=== PATIENT | female | born 1985 | race Two or more races ===

== ENCOUNTER 2020-07-18 14:43 | Outpatient (REF) | payer OTHER, SELFPAY | END 2020-07-18 14:44 | disposition home or self-care (01) | LOC: HO.LAB 14:43 | PROVIDERS: Visit Provider Internal Medicine | DX: Z20.822 Contact with and (suspected) exposure to COVID-19 (principal) | CPT/HCPCS: 36415; C9803; U0003 ==

== ENCOUNTER 2020-07-31 16:59 | Outpatient (REF) | payer OTHER, SELFPAY | END 2020-07-31 17:00 | disposition home or self-care (01) | LOC: HO.LAB 16:59 | PROVIDERS: Visit Provider Internal Medicine | DX: Z20.822 Contact with and (suspected) exposure to COVID-19 (principal) | CPT/HCPCS: 36415; C9803; U0003 ==

== ENCOUNTER 2020-08-19 09:43 | Emergency (ER) | payer OTHER, SELFPAY ==
--- NOTE | ~2020-08-19 | XR_ITS ---
EXAMINATION: XR KNEE, LEFT CLINICAL INFORMATION: Injury, pain COMPARISON: Report radiographs left knee 11/19/2015, films unavailable. TECHNIQUE: Four views of the left knee. 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 There is no fracture or dislocation or destructive process. No joint narrowing or erosive change or chondrocalcinosis. Lateral view suggests borderline thickening suprapatellar bursa which may represent trace effusion. Hoffa's fat pad appears normal. XR/XR knee LT 4V IMPRESSION: 1. Suspect trace suprapatellar effusion. No fracture or dislocation. 2. Congenital bipartite patella.
--- NOTE | 2020-08-19 09:55 | ED_ITS ---
HPI - Extremity Injury (Lower) General Chief Complaint: Extremity Injury, Lower Stated Complaint: leg pain Time Seen by Provider: 08/19/20 09:55 Source: patient Mode of arrival: ambulatory Limitations: no limitations History of Present Illness HPI Narrative: while dancing patient felt the knee go in MD complaint: knee injury Onset (ago): day(s) Injury: Left: knee Type of Injury: eversion Place: home Related Data Allergies Allergy/AdvReac Type Severity Reaction Status Date / Time amoxicillin [AMOXICILLIN] Allergy Mild RASH Verified 08/19/20 10:05 Review of Systems Constitutional: Constitutional: Reports no additional constitutional complaints Eyes: Eyes: Reports no additional eye complaints ENT: Denies dizziness Cardiovascular: Cardiovascular: Reports no additional cardiovascular complaints Respiratory: Respiratory: Reports as per HPI Gastrointestinal: Gastrointestinal: Reports no additional gastrointestinal complaints Genitourinary: Genitourinary: Reports no additional female genitourinary complaints Musculoskeletal: Musculoskeletal: Reports no additional musculoskeletal complaints Integumentary/Breasts: Skin/Breast: Denies rash Neurologic: Reports system reviewed and no additional complaints, except as documented, Denies dizziness and Denies Sensory deficit (Neuro) Psychiatric: Psychiatric: Denies anxiety REPLACED BY [facility] Past Medical History Medical History No known health problems Social History Social History Alcohol intake: current Alcohol intake frequency: holidays/special occasions only Smoking Status: Never smoker Smoked in Last 30 Days: No Use of substances other than those prescribed or required for medical reasons: Yes Substance Use Type: Marijuana Substance Use Frequency: Daily Any prior treatment program specific to substance use: No Advance Directives: Yes Advance Directives Information Provided: No Advance Directives on File: No Physical Exam Vital Signs: Vital Signs: Last Vital Signs Temp 97.2 F 08/19/20 12:54 Pulse 68 08/19/20 12:54 Resp 14 08/19/20 12:54 BP 124/71 08/19/20 12:54 Pulse Ox 98 08/19/20 12:54 Body Mass Index 32.5 Const: General: healthy appearing Nutritional Appearance: average body habitus Orientation/consciousness: oriented to person and patient oriented x3 Limitations: no limitations HENMT: Head: Yes normal to inspection Ears: external ears normal General nose exam: Normal external nose present Mouth: Normal oral and palatal mucosa present and oropharynx normal Throat: Yes posterior oropharynx normal Eyes: General: appearance normal, both eyes and all related structures Neck: Other: supple Neck: Yes normal visual inspection Chest: Chest palpation & inspection: normal inspection of the chest Resp: Auscultation: clear to auscultation bilaterally Cardio: Jugular venous distension: no JVD Rate: regular rate Rhythm: regular rhythm Heart sounds: S1 normal heart sound present and S2 normal heart sound present GI: Inspection: Yes normal to inspection Palpation (GI): Soft to palpation, nontender and No hepatosplenomegaly present Auscultation: normal bowel sounds : General: Yes no CVA tenderness Back/Spine/Pelvis: Back: no CVA tenderness Skin: General skin exam: no rashes or lesions noted Neuro: General: oriented to person and patient oriented x3 Cranial nerves: Yes CN's II-XII intact bilaterally Motor exam (neuro): 5/5 motor strength present throughout Sensory Exam: No Sensory deficit (Neuro) Extrem: Other: left knee, no effusion FROM, no laxity no anterior or posterior draw General: Yes normal to inspection Psych: Appearance: grossly normal MDM - Extremity Injury (Lower) MDM Narrative Medical decision making narrative: patient with cam knee on physical exam, likely strain Differential Diagnosis Differential diagnosis: Likely acute internal derangement of knee Imaging Data knee: Radiologist's impression: no fracture Discharge Plan Discharge Clinical Impression: Knee strain Patient Disposition: Home, Self-Care Instructions: Knee Pain (ED) Additional Instructions: ice for 20 minutes on and off, tylenol or motrin for pain Referrals: Physician,None [Primary Care Provider] - 2 days
[2020-08-19 10:03] VITALS: BP 134/79; PULSE 71; RESP 18; TEMP 37; O2SAT 99; BMI 32.5
[2020-08-19 12:54] VITALS: BP 124/71; PULSE 68; RESP 14; TEMP 36.2; O2SAT 98
== END 2020-08-19 14:10 | disposition home or self-care (01) ==
PROVIDERS: Emergency Provider Emergency Medicine
DX: S86.912A Strain of unspecified muscle(s) and tendon(s) at lower leg level, left leg, initial encounter (principal); X50.1XXA Overexertion from prolonged static or awkward postures, initial encounter; Y93.41 Activity, dancing; Y92.9 Unspecified place or not applicable; Y99.9 Unspecified external cause status
CPT/HCPCS: 73564; 99283; 99284

== ENCOUNTER 2020-09-15 11:13 | Outpatient (REF) | payer OTHER, SELFPAY | END 2020-09-15 11:14 | disposition home or self-care (01) | LOC: HO.LAB 11:13 | PROVIDERS: Visit Provider Internal Medicine | DX: Z20.822 Contact with and (suspected) exposure to COVID-19 (principal) | CPT/HCPCS: 36415; C9803; U0003; U0005 ==

== ENCOUNTER 2020-11-07 10:40 | Outpatient (REF) | payer OTHER, SELFPAY ==
[2020-11-07 11:11] LABS: MANUAL DIFF FLAG NO
[2020-11-07 11:53] LABS: Basophils Percent Auto 0.3 % (0-2); Eosinophils Absolute Auto 0.1 X10*3/uL (0.0-0.4); Eosinophils Percent Auto 1.1 % (0-4); Hematocrit 41.4 % (37-47); Hemoglobin 13.5 g/dl (12.0-16.0); Imm Gran Abs Auto 0.02 X10*3/uL (0.00-0.03); Imm Gran Pct Auto 0.3 % (0.0-0.4); Lymphocytes Absolute Auto 2.6 X10*3/uL (1.2-4.9); Lymphocytes Percent Auto 37.1 % (20-40); Mean Corpuscular HGB Conc 32.6 g/dl (31.0-35.0); Mean Corpuscular Hemoglobin 30.6 pg (27.0-33.0); Mean Corpuscular Volume 93.9 fL (80-98); Mean Platelet Volume 10.7 fL (9.4-12.3); Monocytes Absolute Auto 0.4 X10*3/uL (0.1-1.2); Monocytes Percent Auto 5.4 % (2-11); Neutrophils Absolute Auto 3.9 X10*3/uL (2.0-8.3); Neutrophils Percent Auto 55.8 % (45-73); Platelet Count 301 X10*3/uL (160-400); Red Blood Count 4.41 X10*6/uL (4.20-5.50); Red Cell Distribution Width 12.4 % (11.0-16.0); White Blood Count 7.1 X10*3/uL (4.8-10.8)
[2020-11-07 12:02] LABS: Iron 168 mcg/dL (30-160); Percent Iron Saturation 46 % (15-50); Total Iron Binding Capacity 367 mcg/dL (228-428); Unsaturated Iron Binding 199 ug/dL
== END 2020-11-07 10:41 | disposition home or self-care (01) ==
LOC: HO.LAB 10:40
PROVIDERS: PCP Internal Medicine; Visit Provider Internal Medicine
DX: D64.9 Anemia, unspecified (principal)
CPT/HCPCS: 36415; 83540; 85025

== ENCOUNTER 2020-11-10 11:27 | Outpatient (REF) | payer OTHER, SELFPAY ==
--- NOTE | 2020-11-10 11:32 | ECG_ITS ---
Test Reason : ? Blood Pressure : / mmHG Vent. Rate : 067 BPM Atrial Rate : 067 BPM P-R Int : 164 ms QRS Dur : 074 ms QT Int : 404 ms P-R-T Axes : 037 037 000 degrees QTc Int : 426 ms Normal sinus rhythm with sinus arrhythmia Normal ECG No previous ECGs available Referred By: Kelvin Howard Electronically Signed By:Ghassan Roper
[2020-11-10 12:50] LABS: INTERNATIONAL NORM RATIO 1.1 (0.9-1.1); Prothrombin Time 12.6 SEC (10.8-13.0)
[2020-11-10 13:22] LABS: Anion Gap 13 (12-20); Blood Urea Nitrogen 11 mg/dL (9-16); Calcium 9.7 mg/dL (8.4-10.2); Carbon Dioxide 24 mmol/L (22-29); Chloride 104 mmol/L (96-108); Estimated Glomerular Filt Rate > 60; Glucose Random 85 mg/dL (60-115); Potassium 4.1 mmol/L (3.3-5.1); Sodium 137 mmol/L (135-145)
== END 2020-11-10 11:28 | disposition home or self-care (01) ==
LOC: HO.LAB 11:27
PROVIDERS: PCP Physician Assistant; Visit Provider Physician Assistant
DX: Z01.818 Encounter for other preprocedural examination (principal)
CPT/HCPCS: 36415; 80048; 85610; 93005

== ENCOUNTER 2020-11-17 13:26 | Outpatient (REF) | payer OTHER, SELFPAY ==
[2020-11-17 14:11] LABS: COVID-19 Test Negative (Negative)
== END 2020-11-17 13:27 | disposition home or self-care (01) ==
LOC: HO.LAB 13:26
PROVIDERS: Visit Provider Internal Medicine
DX: Z20.822 Contact with and (suspected) exposure to COVID-19 (principal)
CPT/HCPCS: 36415; 87635; C9803

== ENCOUNTER 2021-01-22 12:48 | Outpatient (RCR) | payer OTHER, SELFPAY | END 2021-04-22 13:36 | disposition home or self-care (01) | LOC: HO.WCC 12:48 | PROVIDERS: Visit Provider Surgery | DX: Z09 Encounter for follow-up examination after completed treatment for conditions other than malignant neoplasm (principal) | CPT/HCPCS: 11042; 11045; 87071; 87077; 87186; 87205; 99212 ==

== ENCOUNTER 2021-02-10 17:49 | Emergency (ER) | payer OTHER, SELFPAY ==
[2021-02-10 18:25] VITALS: BP 125/83; PULSE 72; RESP 16; TEMP 37.1; O2SAT 100; BMI 33.3
[2021-02-10 19:14] LABS: MANUAL DIFF FLAG NO
[2021-02-10 19:17] LABS: Basophils Percent Auto 0.3 % (0-2); Eosinophils Absolute Auto 0.1 X10*3/uL (0.0-0.4); Eosinophils Percent Auto 1.9 % (0-4); Hematocrit 38.2 % (37-47); Hemoglobin 12.3 g/dl (12.0-16.0); Imm Gran Abs Auto 0.01 X10*3/uL (0.00-0.03); Imm Gran Pct Auto 0.1 % (0.0-0.4); Lymphocytes Absolute Auto 3.1 X10*3/uL (1.2-4.9); Lymphocytes Percent Auto 44.4 % (20-40); Mean Corpuscular HGB Conc 32.2 g/dl (31.0-35.0); Mean Corpuscular Hemoglobin 29.9 pg (27.0-33.0); Mean Corpuscular Volume 92.9 fL (80-98); Mean Platelet Volume 10.1 fL (9.4-12.3); Monocytes Absolute Auto 0.4 X10*3/uL (0.1-1.2); Monocytes Percent Auto 5.8 % (2-11); Neutrophils Absolute Auto 3.3 X10*3/uL (2.0-8.3); Neutrophils Percent Auto 47.5 % (45-73); Platelet Count 336 X10*3/uL (160-400); Red Blood Count 4.11 X10*6/uL (4.20-5.50); Red Cell Distribution Width 14.4 % (11.0-16.0)
[2021-02-10 19:36] LABS: Anion Gap 12 (12-20); Blood Urea Nitrogen 13 mg/dL (9-16); Calcium 9.7 mg/dL (8.4-10.2); Carbon Dioxide 25 mmol/L (22-29); Chloride 108 mmol/L (96-108); Creatinine Clr Calc Pharmacy 119.2; Estimated Glomerular Filt Rate > 60; Glucose Random 99 mg/dL (60-115); Potassium 4.1 mmol/L (3.3-5.1); Sodium 141 mmol/L (135-145)
[2021-02-10 21:34] VITALS: BP 124/69; PULSE 64; RESP 16; TEMP 36.9; O2SAT 99
--- NOTE | 2021-02-10 22:26 | ED.SKABFB ---
HPI - Skin/Abscess/Foreign Bdy General Chief complaint: Skin/Abscess/Foreign Body Stated complaint: wound check Time Seen by Provider: 02/10/21 21:35 Source: patient Mode of arrival: ambulatory Limitations: no limitations History of Present Illness HPI narrative: 35-year-old female came in for evaluation of tummy tuck incision for infection. This is a 35-year-old female status post tummy tuck surgery done at [facility] more than 2 months ago, patient has been having complication with incision, patient was admitted at [facility] then was discharged to follow-up with the Wound Clinic, patient also receive a daily wound dressing change by a visiting nurse at home with packing the wound. 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 Related Data Home Medications Medication Instructions Recorded Confirmed amoxicillin 875 mg-potassium 1 tab PO Q12H 01/14/21 01/14/21 clavulanate 125 mg tablet doxycycline monohydrate 100 mg 100 mg PO Q12H 01/14/21 01/14/21 capsule Previous Rx's Medication Instructions Recorded oxycodone 5 mg tablet 5 mg PO TID PRN 3 Days #9 tab 11/24/20 acetaminophen 500 mg tablet (Pain 500 mg PO Q6H 30 Days #120 tab 01/14/21 Reliever (acetaminophen)) mupirocin 2 % topical ointment 1 appl TOPICAL BID 15 Days #22 g 01/14/21 ibuprofen 800 mg tablet 800 mg PO Q8H 30 Days #90 tab 02/06/21 doxycycline hyclate 100 mg tablet 100 mg PO DAILY #14 tab 02/10/21 Allergies Allergy/AdvReac Type Severity Reaction Status Date / Time amoxicillin [AMOXICILLIN] Allergy Mild RASH Verified 01/14/21 15:02 Review of Systems Review of Systems: All other systems are reviewed and are negative Constitutional: Reports as per HPI and Reports no additional constitutional complaints Eyes: Reports as per HPI and Reports no additional eye complaints Reports system reviewed and no additional complaints, except as documented Cardiovascular: Reports as per HPI and Reports no additional cardiovascular complaints Respiratory: Reports as per HPI and Reports no additional respiratory complaints Gastrointestinal: Reports as per HPI and Reports no additional gastrointestinal complaints Genitourinary: Reports no additional female genitourinary complaints Musculoskeletal: Reports no additional musculoskeletal complaints Skin/Breast: Reports system reviewed and no additional complaints, except as docu Psychiatric: Reports no additional psychiatric complaints Endocrine: Reports no additional endocrine complaints Hematologic/Lymphatic: Reports no additional hematologic/lymphatic complaints Allergic/Immunologic: Reports no additional allergic/immunologic complaints Reports system reviewed and no additional complaints, except as documented and Reports Abnormal speech present [facility] Past Medical History Medical History No known health problems Surgical History No history of previous surgery Family History Family History Mother No problems noted. Father No problems noted. 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 Blood pressure normal. Heart rate normal. Respiration rate normal. Temperature normal. Oxygen saturation normal. Appearance: Alert. Oriented X3. No acute distress. Head: Normal external exam. Normocephalic. Atraumatic. No Rodriges signs noted. No raccoon eyes noted Eyes: PERRLA. EOMI. Conjunctiva and sclera normal. Eyelids normal. ENT: TM's Normal. Pharynx normal. Uvula midline. Moist mucous membranes. No trismus noted. No drooling noted. No muffled voice noted. Neck: Normal inspection. Neck supple. FROM. No adenopathy. Thyroid Normal. No meningeal signs. No neck mass noted. CVS: Normal heart rate and rhythm. Heart sound normal. No murmurs noted. Pulses normal throughout. Respiratory: No respiratory distress. Painless inspiration. Breath sounds normal. No wheezes/rales/rhonchi noted. Chest nontender. No accessory muscle usage noted or decreased air movement noted. Abdomen: About 5 cm open wound to the right side of the lower abdomen, packing is in place, no fluctuation or abscess is appreciated. and nontender. Bowel sounds normal in all 4 quadrants. No distention noted. No organomegaly noted. No visible injury noted. Back: No CVA tenderness. Full range of motion noted. Skin: Skin warm and dry. Normal skin color. Normal skin turgor. No rashes/lesions/lacerations noted. Extremities: No lower extremity edema. Extremities exhibit normal range of motion. Extremities nontender. Neuro: Oriented X 3. Cranial nerve exam: II-XII are grossly intact No motor deficit. No sensory deficit. Reflexes normal. Course Course Course Narrative: Assessment and plan. 35-year-old female status post tummy tu a [facility] and has a consequences infection of the surgical incision, patient is prescribed today Zithromax, patient does not meet criteria for SIRS, will add doxycycline and patient states that she will come back tomorrow morning after gentle range for somebody to sit with her daughter. MDM - Skin/Abscess/Foreign Bdy Lab Data Attestation: I reviewed the patient's lab results. Result diagrams: 02/10/21 19:09 02/10/21 19:10 Labs: Lab Results 02/10/21 02/10/21 Range/Units 19:09 19:10 WBC 7.0 (4.8-10.8) X10*3/uL RBC 4.11 L (4.20-5.50) X10*6/uL Hgb 12.3 (12.0-16.0) g/dl Hct 38.2 (37-47) % MCV 92.9 (80-98) fL MCH 29.9 (27.0-33.0) pg MCHC 32.2 (31.0-35.0) g/dl RDW 14.4 (11.0-16.0) % Plt Count 336 (160-400) X10*3/uL MPV 10.1 (9.4-12.3) fL Immature Gran % (Auto) 0.1 (0.0-0.4) % Neut % (Auto) 47.5 (45-73) % Lymph % (Auto) 44.4 H (20-40) % [place] % (Auto) 5.8 (2-11) % Eos % (Auto) 1.9 (0-4) % Baso % (Auto) 0.3 (0-2) % Lymph # (Auto) 3.1 (1.2-4.9) X10*3/uL [place] # (Auto) 0.4 (0.1-1.2) X10*3/uL Eos # (Auto) 0.1 (0.0-0.4) X10*3/uL Baso # (Auto) 0.0 (0.0-0.2) X10*3/uL Abs Immat Gran (auto) 0.01 (0.00-0.03) X10*3/uL Absolute Neuts (auto) 3.3 (2.0-8.3) X10*3/uL Absolute Nucleated RBC 0.000 (0.0-0.012) X10*3/uL Nucleated RBC % (auto) 0.0 (0.0-0.2) /100WBC Sodium 141 (135-145) mmol/L Potassium 4.1 (3.3-5.1) mmol/L Chloride 108 (96-108) mmol/L Carbon Dioxide 25 (22-29) mmol/L Anion Gap 12 (12-20) BUN 13 (9-16) mg/dL Creatinine 0.74 (0.5-1.4) mg/dL Estim Creat Clear Calc 119.2 Estimated GFR > 60 Random Glucose 99 (60-115) mg/dL Calcium 9.7 (8.4-10.2) mg/dL Discharge Plan Discharge Clinical Impression: Wound cellulitis Patient Disposition: Home, Self-Care Instructions: Surgical Site Infections (ED) Prescriptions: New doxycycline hyclate 100 mg tablet 100 mg PO DAILY Qty: 14 RF: 0 No Action ibuprofen 800 mg tablet 800 mg PO Q8H 30 Days Qty: 90 RF: 0 oxycodone 5 mg tablet 5 mg PO TID PRN (Reason: pain) 3 Days Qty: 9 RF: 0 amoxicillin-pot clavulanate 875-125 mg tablet 1 tab PO Q12H RF: 0 doxycycline monohydrate 100 mg capsule 100 mg PO Q12H RF: 0 mupirocin 2 % ointment 1 appl topical BID 15 Days Qty: 22 RF: 0 acetaminophen [Pain Reliever (acetaminophen)] 500 mg tablet 500 mg PO Q6H 30 Days Qty: 120 RF: 0 Referrals: Kelvin Howard PA-C [Primary Care Provider] - 2 days Carole Costa MD [Physician] - 2 days
== END 2021-02-10 22:51 | disposition home or self-care (01) ==
PROVIDERS: Emergency Provider Emergency Medicine; PCP Physician Assistant
DX: T81.49XA Infection following a procedure, other surgical site, initial encounter (principal); L03.90 Cellulitis, unspecified; Y99.9 Unspecified external cause status; Z98.890 Other specified postprocedural states
CPT/HCPCS: 36415; 80048; 85025; 99283

== ENCOUNTER 2021-02-11 09:51 | Emergency (ER) | payer OTHER, SELFPAY ==
[2021-02-11 09:56] VITALS: BP 139/86; PULSE 85; RESP 18; TEMP 36.7; O2SAT 98; BMI 35.4
[2021-02-11 10:22] VITALS: BP 120/75; PULSE 76; RESP 16; TEMP 36.8; O2SAT 96
--- NOTE | 2021-02-11 11:29 | ED_ITS ---
HPI - Wound/Laceration General Chief Complaint: Wound/Laceration Stated Complaint: infection Time Seen by Provider: 02/11/21 11:12 Source: patient Mode of arrival: ambulatory Limitations: no limitations History of Present Illness HPI narrative: Patient comes to the emergency room for a wound in her abdomen. Patient states she had a tummy tuck done in [facility] at the end of December. Patient has had multiple complications with infections. Patient has been seen at [facility], she was given IV antibiotics, discharged and asked to follow- up with the wound clinic. Yesterday, patient was at the Wound Clinic, they said that the wound looks infected, they asked the patient to come to the emergency room, patient did come , labs were drawn, admission was suggested but patient declined because she did not have anyone who could take care of her kids. Today patient returns for evaluation. Patient states that the wound is becoming more painful and foul-smelling. Patient denies fever chills Related Data Home Medications Medication Instructions Recorded Confirmed amoxicillin 875 mg-potassium 1 tab PO Q12H 01/14/21 01/14/21 clavulanate 125 mg tablet doxycycline monohydrate 100 mg 100 mg PO Q12H 01/14/21 01/14/21 capsule Previous Rx's Medication Instructions Recorded oxycodone 5 mg tablet 5 mg PO TID PRN 3 Days #9 tab 11/24/20 acetaminophen 500 mg tablet (Pain 500 mg PO Q6H 30 Days #120 tab 01/14/21 Reliever (acetaminophen)) mupirocin 2 % topical ointment 1 appl TOPICAL BID 15 Days #22 g 01/14/21 ibuprofen 800 mg tablet 800 mg PO Q8H 30 Days #90 tab 02/06/21 doxycycline hyclate 100 mg tablet 100 mg PO DAILY #14 tab 02/10/21 Allergies Allergy/AdvReac Type Severity Reaction Status Date / Time amoxicillin [AMOXICILLIN] Allergy Mild RASH Verified 01/14/21 15:02 Review of Systems Review of Systems: Constitutional : No Weight loss, No Fever, No Chills, No Night Sweats, No Fatigue, No Malaise ENT/Mouth : No Hearing loss, No Ear Pain, No Nasal Congestion, No Sinus Pain, No Hoarseness, No sore throat, No Rhinorrhea, No Swallowing Difficulty Eyes: No Eye Pain, No Swelling, No Redness, No Foreign Body, No Discharge, No Vision Changes Cardiovascular : No Chest Pain, No SOB, No Dyspnea on Exertion, No Orthopnea, No Edema, No Palpitations Respiratory : No Cough, No Sputum, No Wheezing, No Smoke Exposure, No Dyspnea Gastrointestinal : No Nausea, No Vomiting, No Diarrhea, No Constipation, abdominal pain over the surgical wound, see skin below. No Hematochezia, No Melena Genitourinary : no irregular bleeding, No Dysuria, No Urinary Frequency, No Hem aturia, No Urinary Incontinence, No Urgency, No Flank Pain, No Urinary Flow Changes, No Hesitancy Musculoskeletal : No joint pain, No Myalgias, No Joint Swelling Skin : There is a 3 cm open wound over the surgical side, there is mild erythema, falls [place]illing discharge Neuro : No Weakness, No Numbness, No Paresthesias, No Loss of Consciousness, No Dizziness, No Headache Psych : No Anxiety/Panic, No Depression, No SI/HI/AH/VH, No Social Issues, Heme/Lymph: No Bruising, No Bleeding,No Lymphadenopathy Endocrine : No Polyuria, No Polydipsia, No Temperature Intolerance [facility] Past Medical History Medical History (Updated 02/11/21 @ 13:37 by Franca Barnes MD) No known health problems Nonhealing nonsurgical wound Surgical History (Updated 02/11/21 @ 13:32 by Wyatt Beltran MD) H/O abdominoplasty No history of previous surgery Family History Family History Mother No problems noted. Father No problems noted. 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 Beltran came to evaluate the patient. Patient can be followed in the office. Pt was prescribed doxycycline yesterday, patient states she has not started it. Dr. Beltran discussed with the patient that the wound will take months to heal. Patient was expecting that she would get stitches to day and the wound would be fixed immediately. Patient was instructed to change her dressings twice a day. Patient will likely need increase in frequency of wound care which was set up by [facility]. The patient's white blood cell count and lactic acid within normal limits, sepsis not suspected. MDM - Wound/Laceration Lab Data Result diagrams: 02/11/21 12:04 02/11/21 11:56 Labs: Lab Results 02/11/21 02/11/21 02/11/21 Range/Units 11:56 11:56 12:03 WBC (4.8-10.8) X10*3/uL RBC (4.20-5.50) X10*6/uL Hgb (12.0-16.0) g/dl Hct (37-47) % MCV (80-98) fL MCH (27.0-33.0) pg MCHC (31.0-35.0) g/dl RDW (11.0-16.0) % Plt Count (160-400) X10*3/uL MPV (9.4-12.3) fL Immature Gran % (Auto) (0.0-0.4) % Neut % (Auto) (45-73) % Lymph % (Auto) (20-40) % [place] % (Auto) (2-11) % Eos % (Auto) (0-4) % Baso % (Auto) (0-2) % Lymph # (Auto) (1.2-4.9) X10*3/uL [place] # (Auto) (0.1-1.2) X10*3/uL Eos # (Auto) (0.0-0.4) X10*3/uL Baso # (Auto) (0.0-0.2) X10*3/uL Abs Immat Gran (auto) (0.00-0.03) X10*3/uL Absolute Neuts (auto) (2.0-8.3) X10*3/uL Absolute Nucleated RBC (0.0-0.012) X10*3/uL Nucleated RBC % (auto) (0.0-0.2) /100WBC Sodium 138 (135-145) mmol/L Potassium 4.1 (3.3-5.1) mmol/L Chloride 107 (96-108) mmol/L Carbon Dioxide 23 (22-29) mmol/L Anion Gap 12 (12-20) BUN 11 (9-16) mg/dL Creatinine 0.69 (0.5-1.4) mg/dL Estim Creat Clear Calc 132.1 Estimated GFR > 60 Random Glucose 99 (60-115) mg/dL Lactic Acid 1.1 (0.5-2.0) mmol/L Calcium 9.5 (8.4-10.2) mg/dL Total Bilirubin 0.5 (0.0-1.0) mg/dL Direct Bilirubin 0.2 (0.0-0.5) mg/dL AST 15 (5-31) U/L ALT 17 (0-31) U/L Alkaline Phosphatase 51 (39-117) U/L Total Protein 7.1 (6.5-8.0) g/dL Albumin 4.2 (3.5-5.0) g/dL 02/11/21 Range/Units 12:04 WBC 5.4 (4.8-10.8) X10*3/uL RBC 4.19 L (4.20-5.50) X10*6/uL Hgb 12.3 (12.0-16.0) g/dl Hct 38.9 (37-47) % MCV 92.8 (80-98) fL MCH 29.4 (27.0-33.0) pg MCHC 31.6 (31.0-35.0) g/dl RDW 14.4 (11.0-16.0) % Plt Count 319 (160-400) X10*3/uL MPV 10.1 (9.4-12.3) fL Immature Gran % (Auto) 0.2 (0.0-0.4) % Neut % (Auto) 48.7 (45-73) % Lymph % (Auto) 44.4 H (20-40) % [place] % (Auto) 4.6 (2-11) % Eos % (Auto) 1.9 (0-4) % Baso % (Auto) 0.2 (0-2) % Lymph # (Auto) 2.4 (1.2-4.9) X10*3/uL [place] # (Auto) 0.3 (0.1-1.2) X10*3/uL Eos # (Auto) 0.1 (0.0-0.4) X10*3/uL Baso # (Auto) 0.0 (0.0-0.2) X10*3/uL Abs Immat Gran (auto) 0.01 (0.00-0.03) X10*3/uL Absolute Neuts (auto) 2.6 (2.0-8.3) X10*3/uL Absolute Nucleated RBC 0.000 (0.0-0.012) X10*3/uL Nucleated RBC % (auto) 0.0 (0.0-0.2) /100WBC Sodium (135-145) mmol/L Potassium (3.3-5.1) mmol/L Chloride (96-108) mmol/L Carbon Dioxide (22-29) mmol/L Anion Gap (12-20) BUN (9-16) mg/dL Creatinine (0.5-1.4) mg/dL Estim Creat Clear Calc Estimated GFR Random Glucose (60-115) mg/dL Lactic Acid (0.5-2.0) mmol/L Calcium (8.4-10.2) mg/dL Total Bilirubin (0.0-1.0) mg/dL Direct Bilirubin (0.0-0.5) mg/dL AST (5-31) U/L ALT (0-31) U/L Alkaline Phosphatase (39-117) U/L Total Protein (6.5-8.0) g/dL Albumin (3.5-5.0) g/dL Discharge Plan Discharge Clinical Impression: Delayed surgical wound healing Qualifiers: Encounter type: subsequent encounter Qualified Code(s): T81.89XD - Other complications of procedures, not elsewhere classified, subsequent encounter Patient Disposition: Home, Self-Care Instructions: Surgical Site Infections (ED), Wound Dehiscence (ED) Additional Instructions: Please change your wound dressings twice a day. You may apply wet to dry dressing changes temporarily. Please follow-up with your primary care physician tomorrow. If you have any worsening or new symptoms, please return to the emergency room or call 911 Prescriptions: No Action ibuprofen 800 mg tablet 800 mg PO Q8H 30 Days Qty: 90 RF: 0 doxycycline hyclate 100 mg tablet 100 mg PO DAILY Qty: 14 RF: 0 oxycodone 5 mg tablet 5 mg PO TID PRN (Reason: pain) 3 Days Qty: 9 RF: 0 amoxicillin-pot clavulanate 875-125 mg tablet 1 tab PO Q12H RF: 0 doxycycline monohydrate 100 mg capsule 100 mg PO Q12H RF: 0 mupirocin 2 % ointment 1 appl topical BID 15 Days Qty: 22 RF: 0 acetaminophen [Pain Reliever (acetaminophen)] 500 mg tablet 500 mg PO Q6H 30 Days Qty: 120 RF: 0 Referrals: Wyatt Beltran MD [Physician] - 2 days
[2021-02-11 12:14] LABS: MANUAL DIFF FLAG NO
[2021-02-11 12:17] LABS: Basophils Percent Auto 0.2 % (0-2); Eosinophils Absolute Auto 0.1 X10*3/uL (0.0-0.4); Eosinophils Percent Auto 1.9 % (0-4); Hematocrit 38.9 % (37-47); Hemoglobin 12.3 g/dl (12.0-16.0); Imm Gran Abs Auto 0.01 X10*3/uL (0.00-0.03); Imm Gran Pct Auto 0.2 % (0.0-0.4); Lymphocytes Absolute Auto 2.4 X10*3/uL (1.2-4.9); Lymphocytes Percent Auto 44.4 % (20-40); Mean Corpuscular HGB Conc 31.6 g/dl (31.0-35.0); Mean Corpuscular Hemoglobin 29.4 pg (27.0-33.0); Mean Corpuscular Volume 92.8 fL (80-98); Mean Platelet Volume 10.1 fL (9.4-12.3); Monocytes Absolute Auto 0.3 X10*3/uL (0.1-1.2); Monocytes Percent Auto 4.6 % (2-11); Neutrophils Absolute Auto 2.6 X10*3/uL (2.0-8.3); Neutrophils Percent Auto 48.7 % (45-73); Platelet Count 319 X10*3/uL (160-400); Red Blood Count 4.19 X10*6/uL (4.20-5.50); Red Cell Distribution Width 14.4 % (11.0-16.0); White Blood Count 5.4 X10*3/uL (4.8-10.8)
[2021-02-11 12:37] LABS: Lactic Acid 1.1 mmol/L (0.5-2.0)
[2021-02-11 12:40] LABS: Alanine Aminotransferase 17 U/L (0-31); Albumin Level 4.2 g/dL (3.5-5.0); Alkaline Phosphatase 51 U/L (39-117); Anion Gap 12 (12-20); Aspartate Amino Transferase 15 U/L (5-31); Bilirubin Direct 0.2 mg/dL (0.0-0.5); Bilirubin Total 0.5 mg/dL (0.0-1.0); Blood Urea Nitrogen 11 mg/dL (9-16); Calcium 9.5 mg/dL (8.4-10.2); Carbon Dioxide 23 mmol/L (22-29); Chloride 107 mmol/L (96-108); Creatinine Clr Calc Pharmacy 132.1; Estimated Glomerular Filt Rate > 60; Glucose Random 99 mg/dL (60-115); Potassium 4.1 mmol/L (3.3-5.1); Sodium 138 mmol/L (135-145); Total Protein 7.1 g/dL (6.5-8.0)
--- NOTE | 2021-02-11 13:30 | PM.CNGS ---
History of Present Illness Consult details Consult date: 02/11/21 Narrative: 35-year-old female referred by the ED for nonhealing wound. She had an abdominoplasty in the [place] last 12/11/2020. She says she did not have any follow-up visit after coming back right after surgery and developed what she says was a wound infection. She says she was admitted in [facility] for ?bacteremia? last month. She says she was supposed to see a surgeon there again but she been unable to set up a follow-up visit. She therefore has been seeing the wound clinic. She has been undergoing dressing changes every 2 days with a visiting nurse set up by [facility]. However, she was sent yesterday by the wound clinic because of a fall or from the wound itself. She denies any fever or chills. Review of Systems Constitutional: Constitutional: Denies chills and Denies fever(s) Cardiovascular: Cardiovascular: Denies chest pain, Denies dyspnea and Denies dyspnea on exertion Respiratory: Respiratory: Denies cough, Denies dyspnea and Denies dyspnea on exertion Gastrointestinal: Gastrointestinal: Denies hematochezia and Denies change in bowel habits Genitourinary: Genitourinary: Denies hematuria Musculoskeletal: Musculoskeletal: Denies back pain and Denies limited range of motion Neurologic: Denies focal weakness and Denies convulsions Psychiatric: Psychiatric: Denies depression and Denies mood swings PMFSH Past Medical History Medical History (Updated 02/11/21 @ 13:35 by Wyatt Beltran MD) No known health problems Nonhealing nonsurgical wound Family History Family History Mother No problems noted. Father No problems noted. 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 Meds Allergies Allergy/AdvReac Type Severity Reaction Status Date / Time amoxicillin [AMOXICILLIN] Allergy Mild RASH Verified 01/14/21 15:02 Home Medications Medication Instructions Recorded Confirmed Last Taken Type amoxicillin 875 mg-potassium 1 tab PO Q12H 01/14/21 01/14/21 Unknown History clavulanate 125 mg tablet doxycycline monohydrate 100 mg 100 mg PO Q12H 01/14/21 01/14/21 Unknown History capsule Physical Exam Vital Signs: Vital Signs: Last Vital Signs Temp 98.2 F 02/11/21 10:22 Pulse 76 02/11/21 10:22 Resp 16 02/11/21 10:22 BP 120/75 02/11/21 10:22 Pulse Ox 96 02/11/21 10:22 Body Mass Index 35.4 Const: Other: Looks well, not in distress Chemistry 02/11/21 11:56 Sodium 138 Potassium 4.1 Carbon Dioxide 23 BUN 11 Creatinine 0.69 Calcium 9.5 Hematology 02/11/21 12:04 WBC 5.4 Hgb 12.3 Plt Count 319 General: comfortable and no acute distress Orientation/consciousness: patient oriented x3 Neck: Neck: Yes no lymphadenopathy Resp: Auscultation: clear to auscultation bilaterally Cardio: Rhythm: regular rhythm GI: Other: Abdominal wall - open wound on the right side of her abdominoplasty incision, about 5 cm in widest diameter, with exposed subcutaneous tissue, with note of some skin is fat necrosis, no pus a no surrounding cellulitis Palpation (GI): Soft to palpation, nontender and no guarding Neuro: General: patient oriented x3 Results Labs Result diagrams: 02/11/21 12:04 02/11/21 11:56 Labs: Abnormal lab results 02/11/21 Range/Units 12:04 RBC 4.19 L (4.20-5.50) X10*6/uL Lymph % (Auto) 44.4 H (20-40) % Short CBC 02/11/21 Range/Units 12:04 WBC 5.4 (4.8-10.8) X10*3/uL Hgb 12.3 (12.0-16.0) g/dl Hct 38.9 (37-47) % Plt Count 319 (160-400) X10*3/uL BMP 02/11/21 11:56 Sodium 138 Potassium 4.1 Chloride 107 Carbon Dioxide 23 BUN 11 Creatinine 0.69 Calcium 9.5 Liver Function 02/11/21 Range/Units 11:56 Total Bilirubin 0.5 (0.0-1.0) mg/dL Direct Bilirubin 0.2 (0.0-0.5) mg/dL AST 15 (5-31) U/L ALT 17 (0-31) U/L Alkaline Phosphatase 51 (39-117) U/L Albumin 4.2 (3.5-5.0) g/dL All other labs normal. Assessment and Plan (1) Nonhealing nonsurgical wound: Status: Acute She has an open chronic nonhealing wound on her abdominoplasty incision. She says that this had been previously debrided as well in [facility]. There was note of some subcutaneous fat necrosis but there is no pus and there was no cellulitis. She has no fever and she has no leukocytosis. I told her that she probably should change dressings more often as she currently says that it is just things are being changed every 2-3 days. She can start the oral antibiotics as prescribed by the emergency room physician. I told her that we can follow her closely in the office so we can see if she will benefit from debridement down the line. I gave her wound care instructions. I discussed this as well in the presence of the emergency room physician. She she seems to understand the plan well and agrees with this. Procedures Date of Service Date of Service: 02/11/21
[2021-02-11 13:50] VITALS: BP 130/79; PULSE 77; RESP 16; TEMP 36.8; O2SAT 97
== END 2021-02-11 13:52 | disposition home or self-care (01) ==
PROVIDERS: Emergency Provider Emergency Medicine; PCP Physician Assistant
DX: T81.89XA Other complications of procedures, not elsewhere classified, initial encounter (principal); Y83.8 Other surgical procedures as the cause of abnormal reaction of the patient, or of later complication, without mention of misadventure at the time of the procedure; Y92.9 Unspecified place or not applicable
CPT/HCPCS: 36415; 80048; 80076; 83605; 85025; 87040; 99283; 99284

== ENCOUNTER → 2021-02-12 14:07 | Outpatient (BNVA) | payer OTHER, SELFPAY | PROVIDERS: PCP Physician Assistant; Referring Provider Physician Assistant; Visit Provider Surgery | DX: T14.8XXA Other injury of unspecified body region, initial encounter (principal) | CPT/HCPCS: 99212 ==

== ENCOUNTER 2021-02-27 09:19 | Day surgery (SDC) | payer OTHER, SELFPAY ==
[2021-02-20 10:50] VITALS: BMI 31.6
--- NOTE | 2021-02-26 09:59 | HO.ANESPROP2 ---
Documented by User: Lacey Turner NP 02/26/21 10:01 HPI - Anesthesia Eval Consult details Narrative: 35yo F for Debridement of Abdominal Wound PMFSH Active Problems Active Problems: All Active Problems (Updated 02/20/21 @ 10:55 by Kateryna Danielson, RN) Pre-op evaluation (Acute) Obese (Acute) Abdominal pain (Acute) Wound cellulitis (Acute) Open abdominal wall wound (Acute) Bacteremia (Acute) Nonhealing nonsurgical wound (Acute) H/O abdominoplasty (Acute) Past Medical History Medical History COVID-19 vaccination not done IUD (intrauterine device) in place Nonhealing nonsurgical wound Family History Family History Mother No problems noted. Father No problems noted. Surgical History Surgical History H/O abdominoplasty Social History Social History Housing: House Alcohol intake: current Alcohol intake frequency: does not drink Patient Tobacco Use Status: Never used Tobacco e-Cigarette/Vaping Use: Never Used Second Hand Smoke Exposure: No Use of substances other than those prescribed or required for medical reasons: Yes Substance Use Type: Marijuana Substance Use Frequency: Daily Are you DNR?: No Advance Directives: No Advance Directives Information Provided: No Advance Directives on File: No Patient : No FDLMP: unknown : No Poor oral hygiene: No Current occupational status: employed 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 Rate : 067 BPM ? ? Atrial Rate : 067 BPM ?? P-R Int : 164 ms? QRS Dur : 074 ms ? ? QT Int : 404 ms ? ? ? P-R-T Axes : 037 037 000 degrees ?? QTc Int : 426 ms ? Normal sinus rhythm with sinus arrhythmia Normal ECG No previous ECGs available Assessment and Plan Assessment Anesthesia Assessment: Chart Reviewed Documented by User: Maria Isabel Mcduffie MD 02/27/21 11:47 PMFSH Past Medical History Medical History COVID-19 vaccination not done IUD (intrauterine device) in place Nonhealing nonsurgical wound Family History Family History Mother No problems noted. Father No problems noted. Surgical History Surgical History H/O abdominoplasty History of Problems with Anesthesia: No Social History Social History Housing: House Alcohol intake: current Alcohol intake frequency: does not drink Patient Tobacco Use Status: Never used Tobacco e-Cigarette/Vaping Use: Never Used Second Hand Smoke Exposure: No Use of substances other than those prescribed or required for medical reasons: Yes Substance Use Type: Marijuana Substance Use Frequency: Daily Are you DNR?: No Advance Directives: No Advance Directives Information Provided: No Advance Directives on File: No Patient : No FDLMP: unknown : No Poor oral hygiene: No Current occupational status: employed 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 Meds Allergies Allergy/AdvReac Type Severity Reaction Status Date / Time amoxicillin [AMOXICILLIN] Allergy Mild RASH Verified 02/20/21 10:42 Exam Airway Mallampati Class: II TM Dist: >3cm Neck ROM: Full Loose/Missing/Broken Teeth: No Heart: RRR Lungs: CTA Assessment and Plan Assessment Anesthesia Assessment: Anesthesia Plan Discussed Final Anesthetic Review History of Problems with Anesthesia: No NPO: Yes ASA Class: II Final Preanesthetic Review: Meds/Allgs Chart Reviewed, Consent Obtained/Reviewed and Anes Risks/Benef Reviewed Patient Risk: Low Procedure Risk: Low Anesthetic Plan Anesthetic Plan: MAC: Disposition: Standard PACU
[2021-02-27 09:40] VITALS: BP 124/66; PULSE 78; RESP 18; TEMP 36.9; O2SAT 98
[2021-02-27] MEDS: Lactated Ringers 1,000 ML 100 ML IVCONT (09:46)
[2021-02-27 09:48] LABS: UPreg QC Valid YES; Urine Pregnancy NEGATIVE (NEGATIVE)
--- NOTE | 2021-02-27 11:01 | MHC.SHP ---
Pre-Procedural Eval Section A Date of Service: 02/27/21 Section B Chief Complaint: Nonhealing nonsurgical wound Allergies: Allergies Allergy/AdvReac Type Severity Reaction Status Date / Time amoxicillin [AMOXICILLIN] Allergy Mild RASH Verified 02/20/21 10:42 Plan I have reviewed the history and physical and performed a pertinent physical examination on my patient. No changes have occurred unless specified.
--- NOTE | 2021-02-27 11:53 | W.PM.OPN ---
Operative Note Operative Note Date of Service: 02/27/21 Narrative: Preop diagnosis: Nonhealing wound, from previous abdominoplasty Postop diagnosis: The same Procedure: Excisional debridement of nonhealing wound under anesthesia Surgeon: Wyatt Beltran MD regulatory affairs assistant: YOHAN Eng The patient is a 35-year-old female who had undergone abdominoplasty in the [facility] [place] in 12/11/2020. She ended up with a nonhealing wound on the right side of the abdominoplasty incision. She was seen in the office and was noted to have nonviable necrotic tissue on the base of the wound. The wound in the office measured about 2.5 cm but was undermining underneath. I scheduled her for debridement in view of the nonhealing wound. She understood the technique of the procedure as well as the risks, benefits, and alternatives She was brought to the operating room and placed in supine position under monitored anesthesia care. The abdomen was prepped and draped usual sterile fashion. A surgical time-out was done. Patient received cefazolin 2 g IV preoperatively I infiltrated the area surrounding open wound using lidocaine 1% generously. The wound was examined carefully and there was note of a thick, nonviable necrotic and fibrotic tissue on the base. I sharply excised this non viable tissue using Metzenbaum scissors as well as curved Burnett scissors. I was able to therefore examine more of the base of the wound and there was significant undermining and laterally. I therefore had to open the area with the undermining using a blade 15 to allow me to debride this further. I continued to do more sharp excisional debridement of the areas superiorly and laterally were the undermining was noted, to remove all the nonviable tissue. I also used the curette on the rest of the base of the wound. Once it appeared that the base of the wound and the wound edges had tissue, I copiously irrigated. wound itself measured about 5 cm x 5 cm across and had a depth of 2 cm. I applied a light packing moistened with normal saline and dry gauze The area of the incision was then infiltrated with Marcaine 0.5% for postop analgesia. The procedure was completed. The patient tolerated procedure well. There were no complications noted. Initial and final counts of sponges and instruments were correct. Estimated blood loss was about 10 cc The patient is then transferred to the recovery room with stable vital signs.
--- NOTE | 2021-02-27 11:59 | P.BOP_ITS ---
Brief Operative Note Date of Service: 02/27/21 Pre-op diagnosis: Nonhealing surgical wound on the abdomen from previous abdominoplasty Post-op diagnosis: same Procedure: Excision debridement of nonhealing abdominal wound under anesthesia Surgeon: Wyatt Beltran MD Anesthesia: MAC Was an Water Meter Installer used for this Procedure?: Yes Water Meter Installer: Janine Eng Estimated blood loss (mL): 5 Pathology: other (Debridement of wound) Condition: stable Disposition: PACU
[2021-02-27 12:04] VITALS: BP 148/95; PULSE 60; RESP 18; TEMP 37; O2SAT 98
[2021-02-27] MEDS: Acetaminophen 325 MG TABLET 650 MG PO (12:11)
[2021-02-27] MEDS: oxyCODONE HCl Immed Release 5 MG TABLET PO (12:12)
[2021-02-27] MEDS: ondansetron HCL 4 MG/2 ML VIAL IVPUSH (12:13)
[2021-02-27] MEDS: Ketorolac Tromethamine 15 MG/ML VIAL IVPUSH (12:13)
[2021-02-27 12:19] VITALS: BP 149/95; PULSE 57; RESP 18; O2SAT 99
[2021-02-27 12:34] VITALS: BP 134/77; PULSE 56; RESP 18; TEMP 37.4; O2SAT 100
== END 2021-02-27 13:20 | disposition home or self-care (01) ==
PROVIDERS: Nurse Practitioner; PCP Physician Assistant; Visit Provider Surgery
PROC: (CPT 11042; principal; 2021-02-27 10:50)
DX: L76.82 Other postprocedural complications of skin and subcutaneous tissue (principal); I96 Gangrene, not elsewhere classified; Y83.8 Other surgical procedures as the cause of abnormal reaction of the patient, or of later complication, without mention of misadventure at the time of the procedure; Y92.9 Unspecified place or not applicable; Z88.0 Allergy status to penicillin
CPT/HCPCS: 11042; 11045; 81025; 88304; J0690; J1885; J2250; J2405; J3010

== ENCOUNTER → 2021-03-11 14:24 | Outpatient (BNVA) | payer OTHER, SELFPAY | PROVIDERS: PCP Physician Assistant; Visit Provider Surgery ==

== ENCOUNTER → 2021-03-12 15:16 | Outpatient (BNVA) | payer OTHER, SELFPAY | PROVIDERS: PCP Physician Assistant; Referring Provider Physician Assistant; Visit Provider Surgery | DX: T81.89XD Other complications of procedures, not elsewhere classified, subsequent encounter (principal) | CPT/HCPCS: 99212 ==

== ENCOUNTER 2021-04-21 09:37 | Outpatient (REF) | payer OTHER, SELFPAY | END 2021-04-21 09:38 | disposition home or self-care (01) | LOC: HO.LAB 09:37 | PROVIDERS: PCP Physician Assistant; Visit Provider Internal Medicine | DX: Z20.822 Contact with and (suspected) exposure to COVID-19 (principal) | CPT/HCPCS: C9803; U0003; U0005 ==

== ENCOUNTER 2021-06-30 08:51 | Outpatient (REF) | payer OTHER, SELFPAY | END 2021-06-30 08:52 | disposition home or self-care (01) | LOC: HO.HMGCLDS 08:51 | PROVIDERS: Visit Provider Internal Medicine | DX: Z20.822 Contact with and (suspected) exposure to COVID-19 (principal) | CPT/HCPCS: C9803; U0003; U0005 ==

== ENCOUNTER 2021-07-27 08:56 | Outpatient (REF) | payer OTHER, SELFPAY ==
--- NOTE | 2021-07-27 09:00 | ECG_ITS ---
Test Reason : z01.818 preop Blood Pressure : / mmHG Vent. Rate : 081 BPM Atrial Rate : 081 BPM P-R Int : 152 ms QRS Dur : 074 ms QT Int : 390 ms P-R-T Axes : 061 036 003 degrees QTc Int : 453 ms Normal sinus rhythm Normal ECG When compared with ECG of 10-NOV-2020 11:38, No significant change was found Referred By: Kelvin Howard Electronically Signed By:NNEKA RASHEED MD
[2021-07-27 10:01] LABS: Hematocrit 41.2 % (37.0-47.0); Hemoglobin 13.5 g/dl (12.0-16.0); Mean Corpuscular HGB Conc 32.8 g/dl (31.0-35.0); Mean Corpuscular Hemoglobin 30.5 pg (27.0-33.0); Mean Platelet Volume 10.4 fL (9.4-12.3); Platelet Count 312 X10*3/uL (160-400); Red Blood Count 4.43 X10*6/uL (4.20-5.50); Red Cell Distribution Width 12.6 % (11.0-16.0); White Blood Count 6.6 X10*3/uL (4.8-10.8)
[2021-07-27 10:02] LABS: Appearance Urine HAZY; Color Urine YELLOW; Glucose Urine UA NEG (NEG); Leukocyte Esterase Urine NEG (NEG); Nitrite Urine NEG (NEG); PH 6.5 (5.0-8.0); UACC Culture Trigger NO; Urine Blood 1+ (NEG); Urine Ketones NEG (NEG); Urine Protein TRACE MG/DL (NEG-TRACE)
[2021-07-27 10:06] LABS: Prothrombin Time 11.7 SEC (9.9-13.0)
[2021-07-27 10:32] LABS: Alanine Aminotransferase 19 U/L (0-31); Albumin Level 4.3 g/dL (3.5-5.0); Alkaline Phosphatase 52 U/L (39-117); Anion Gap 11 (12-20); Aspartate Amino Transferase 17 U/L (5-31); Bilirubin Direct 0.2 mg/dL (0.0-0.5); Bilirubin Total 0.5 mg/dL (0.0-1.0); Blood Urea Nitrogen 12 mg/dL (9-16); Calcium 9.4 mg/dL (8.4-10.2); Carbon Dioxide 27 mmol/L (22-29); Chloride 106 mmol/L (96-108); Estimated Glomerular Filt Rate > 60; Glucose Random 72 mg/dL (60-115); Iron 52 mcg/dL (30-160); Percent Iron Saturation 14 % (15-50); Potassium 4.1 mmol/L (3.3-5.1); Sodium 140 mmol/L (135-145); Total Iron Binding Capacity 368 mcg/dL (228-428); Total Protein 7.6 g/dL (6.5-8.0); Unsaturated Iron Binding 316 ug/dL
[2021-07-27 11:54] LABS: Bacteria Urine 1+ /LPF; RBC Urine 0-2 /HPF (0); Squamous Epithelial Cell Urine 2+ /LPF
== END 2021-07-27 08:57 | disposition home or self-care (01) ==
LOC: HO.LAB 08:56
PROVIDERS: PCP Physician Assistant; Visit Provider Physician Assistant
DX: Z01.818 Encounter for other preprocedural examination (principal); R30.0 Dysuria; D50.9 Iron deficiency anemia, unspecified
CPT/HCPCS: 36415; 80048; 80076; 81001; 81003; 83540; 85027; 85610; 93005

== ENCOUNTER 2021-10-28 16:11 | Emergency (ER) | payer OTHER, SELFPAY ==
[2021-10-28 16:34] VITALS: BP 127/100; PULSE 77; RESP 16; TEMP 36.7; O2SAT 99; BMI 34.3
--- NOTE | 2021-10-28 18:05 | ED.BACK ---
HPI - Back Pain/Injury General Chief Complaint: Back Pain/Injury Stated Complaint: elbow pain Time Seen by Provider: 10/28/21 17:53 Source: patient Mode of arrival: ambulatory Limitations: no limitations History of Present Illness HPI Narrative: Patient comes emergency room complaining of lower back pain/sacral pain radiating towards the left buttock cheek. It started this morning, patient woke up with the pain. Patient denies any trauma. Patient states that over last few days , she has been caring multiple heavy laundry bags in her house. But no injury. Patient states it hurts to flex and extend the back, patient is able to walk, patient denies lower extremity weakness, no urinary/fecal incontinence/retention, no fever or chills. Patient denies IV drug use. Patient denies having any recent infection. Related Data Previous Rx's Medication Instructions Recorded acetaminophen 500 mg tablet (Pain 500 mg PO Q6H 30 Days #120 tab 01/14/21 Reliever (acetaminophen)) ibuprofen 800 mg tablet 800 mg PO Q8H 30 Days #90 tab 03/04/21 diclofenac sodium 1 % topical gel 2 g TOPICAL QID PRN 14 Days #100 g 07/22/21 (Arthritis Pain (diclofenac)) cyclobenzaprine 10 mg tablet 10 mg PO TID PRN #10 tab 10/28/21 ibuprofen 600 mg tablet 600 mg PO TID PRN #14 tab 10/28/21 Allergies Allergy/AdvReac Type Severity Reaction Status Date / Time amoxicillin [AMOXICILLIN] Allergy Mild RASH Verified 07/27/21 08:14 Review of Systems Review of Systems: Constitutional : No Weight loss, No Fever, No Chills, No Night Sweats, No Fatigue, No Malaise ENT/Mouth : No Hearing loss, No Ear Pain, No Nasal Congestion, No Sinus Pain, No Hoarseness, No sore throat, No Rhinorrhea, No Swallowing Difficulty Eyes: No Eye Pain, No Swelling, No Redness, No Foreign Body, No Discharge, No Vision Changes Cardiovascular : No Chest Pain, No SOB, No Dyspnea on Exertion, No Orthopnea, No Edema, No Palpitations Respiratory : No Cough, No Sputum, No Wheezing, No Smoke Exposure, No Dyspnea Gastrointestinal : No Nausea, No Vomiting, No Diarrhea, No Constipation, No abdominal Pain, No Hematochezia, No Melena Genitourinary : no irregular bleeding, No Dysuria, No Urinary Frequency, No Hematuria, No Urinary Incontinence, No Urgency, No Flank Pain, No Urinary Flow Changes, No Hesitancy Musculoskeletal : Complaining of lower back pain, radiating towards the left buttock, no joint pain, No Myalgias, No Joint Swelling Skin : No Skin Lesions, No rash Neuro : No Weakness, No Numbness, No Paresthesias, No Loss of Consciousness, No Dizziness, No Headache Psych : No Anxiety/Panic, No Depression, No SI/HI/AH/VH, No Social Issues, Heme/Lymph: No Bruising, No Bleeding,No Lymphadenopathy Endocrine : No Polyuria, No Polydipsia, No Temperature Intolerance [facility] Past Medical History Medical History COVID-19 vaccination not done IUD (intrauterine device) in place Nonhealing nonsurgical wound Surgical History H/O abdominoplasty Family History Family History Mother No problems noted. Father No problems noted. 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 Oriented X3. No acute distress. Eyes: Pupils equal, round and reactive to light. ENT: Pharynx normal. Neck: Normal inspection. Neck supple. No lymph nodes noted. No crepitus CVS: Normal heart rate and rhythm. Pulses normal. Normal S1 and S2 Respiratory: No respiratory distress. Breath sounds normal. No Wheezing. No rales Abdomen: Soft and nontender. No rigidity. No distention. Back: No significant pain to palpation in lumbar or sacral spine. Pain to palpation with flexion extension which radiates towards the left buttocks Skin: Skin warm and dry. Normal skin color. Normal skin turgor. No signs of cellulitis/pilonidal cyst Extremities: No lower extremity edema. No Lacerations. No Rash Neuro: Oriented X 3. No motor deficit. No sensory deficit. Moving all extremities. No slurred speech. CN 2 through 12 grossly intact Psych: calm, cooperative, normal affect Course Course Course Narrative: Patient has no obvious injury, infection is not suspected. Cauda equina not suspected. Patient likely has sciatica. Patient was given 1 dose of IM Toradol and Decadron. Discharge Plan Discharge Clinical Impression: Sciatica Patient Disposition: Home, Self-Care Instructions: Sciatica (ED) Additional Instructions: Please follow-up with your primary care physician tomorrow. If you have any worsening or new symptoms, please return to the emergency room or call 911 Prescriptions: New cyclobenzaprine 10 mg tablet 10 mg PO TID PRN (Reason: muscle spasm) Qty: 10 0RF ibuprofen 600 mg tablet 600 mg PO TID PRN (Reason: pain) Qty: 14 0RF No Action ibuprofen 800 mg tablet 800 mg PO Q8H 30 Days Qty: 90 0RF acetaminophen [Pain Reliever (acetaminophen)] 500 mg tablet 500 mg PO Q6H 30 Days Qty: 120 0RF diclofenac sodium [Arthritis Pain (diclofenac)] 1 % gel 2 g topical QID PRN (Reason: pain) 14 Days Qty: 100 0RF Rx Instructions: apply to single elbow, wrist or hand; for hand includes palm/fingers/back of hand
[2021-10-28] MEDS: Ketorolac Tromethamine 60 MG/2 ML VIAL IM (18:16)
[2021-10-28] MEDS: dexAMETHasone sod phosphate 4 MG/ML VIAL 6 MG IM (18:17)
== END 2021-10-28 18:50 | disposition home or self-care (01) ==
LOC: HO.ED 18:30
PROVIDERS: Emergency Provider Emergency Medicine; PCP Physician Assistant
DX: M54.30 Sciatica, unspecified side (principal)
CPT/HCPCS: 96372; 99284; J1100; J1885

== ENCOUNTER 2021-11-25 14:00 | Outpatient (RCR) | payer OTHER, SELFPAY ==
--- NOTE | 2021-10-30 12:30 | MHC.PT.EP ---
[facility] [place] Office [place] Office [place] Office [address] Radha Epps [address] [phone] F: [phone] F: [phone] F: [phone] F: [phone] Physical Therapy Plan of Care Date of Evaluation: Date of Surgery: Diagnosis: DORSALGIA Assessment: 35 YO FEMALE REF TO PT W H/O DORSALGIA- SHE FEELS IS IMPACTED BY HER BREAST SIZE- SHE UNDERWENT A SURGICAL BREAST LIFT 2 MONTHS AGO AND IS DISAPPOINTED THAT HER PAIN PERSISTS. 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 SHE HAS DECR POSTURAL AWARENESS, (+) SOFT TISSUE IRRIT AND TISSUE TENSION IN ANDRES UT AND CERV-> LUMBAR PS MM, STRENGTH DEFICITS IN POST RC/ SCAP, AND PAIN. FUNCTIONALLY, Pt REPORTS DIFFIC W SLEEPING, LIFTING, STATIC POSITIONING, AND GENERAL SPLUNK ARCHITECT. Pt IS A VERY GOOD PT CANDIDATE TO ADDRESS THE ABOVE FINDINGS, PAIN MGMT, DEV SELF- SX MGMT STRATEGIES, AND MAXIMIZING FUNCTIONAL INDEPENDENCE. Frequency and Duration: The patient will be seen 2 x WK x 5 WKS Short Term Goals: *Pt'S BACK PAIN DECR TO 2-3/10 IN 2 WKS *REDUCE POSTERIOR CHAIN TISSUE TENSION Pt INITIATED HEP/ STM IN 2 WKS * Pt DEMON PROPER FUNCT SQUAT AND POSTURAL SELF-CORRECT TECHN IN 2 WKS Exhibit Technician Goals: *Pt SIMUL 3:3 ADLs / WORK TASKS W PROPER MECHANICS IN 5 WKS *Pt DEMON IMPROVED CORE STAB/ STRENGTH EVIDENT IN IMPROVED OSWESTRY SCORE BY 3-5 POINTS (7/50 AT EVAL) IN 5 WKS *Pt INDEP W HEP, PROGRESSIVE STRENGTHENING, AND SELF-SX MGMT STRATEGIES IN 5 WKS Treatment Plan: Modalities to reduce pain, spasms and effusion. Manual therapy to restore motion and function. Therapeutic exercise to improve strength and flexibility. Neuromuscular re-education for posture and balance. Therapeutic activities to return to functional activities of daily living. Electronically signed by: Sana FerrerPT Please sign and return to therapist. Thank you for your referral.
--- NOTE | 2021-12-22 10:14 | MHC.PT.DC ---
[facility] [place] Office [place] Office [place] Office [address] Radha Epps [address] [phone] F: [phone] F: [phone] F: [phone] F: [phone] Physical Therapy Discharge Report Diagnosis: DORSALGIA Date of Surgery: Date of Evaluation: 10/30/21 Date of Discharge: 12/22/21 Treatments to Date: 3 Cancellations to Date: 2 No Shows to Date: 3 Discharge Status: Visit Non-compliance Discharge Summary: Cancelled and no slowed for multiple visits including last schedule appointment. Attempts to reach by phone were unsucessful and she is being DCed for non-compliance. She has been issued a comprehensive home program and if symptoms persist at MD follow up we recommend cont performance of HEP for self management of symptoms. Electronically signed by: Mariam Morfin PT, DPT Please sign and return to therapist. Thank you for your referral.
== END 2021-12-22 10:15 | disposition home or self-care (01) ==
LOC: HO.PT 14:00
PROVIDERS: PCP Physician Assistant; Visit Provider Nurse Practitioner Family
DX: M54.9 Dorsalgia, unspecified (principal)
CPT/HCPCS: 97110; 97140; 97162; 97530

== ENCOUNTER 2021-12-10 10:02 | Outpatient (REF) | payer OTHER, SELFPAY ==
--- NOTE | ~2021-12-10 | XR_ITS ---
EXAMINATION: X-RAY THORACIC SPINE X-RAY LUMBAR SPINE CLINICAL INFORMATION: Pain. COMPARISON: No similar priors. TECHNIQUE: 3 views of the thoracic spine and 3 views of the lumbar spine. FINDINGS: Thoracic spine: No acute fractures or malalignment. No significant degenerative changes. The visualized cardiomediastinal silhouette and segments of the lungs are within normal limits. No significant soft tissue abnormality. Lumbar spine: No acute fracture or malalignment. No significant degenerative changes. Perispinal soft tissues are within normal limits. An IUD is visualized within the pelvis. XR/XR thoracic spine 3V IMPRESSION: No significant radiographic abnormality. If symptoms persist, recommend correlation with a CT or preferable MR.
--- NOTE | ~2021-12-10 | XR_ITS ---
EXAMINATION: X-RAY THORACIC SPINE X-RAY LUMBAR SPINE CLINICAL INFORMATION: Pain. COMPARISON: No similar priors. TECHNIQUE: 3 views of the thoracic spine and 3 views of the lumbar spine. FINDINGS: Thoracic spine: No acute fractures or malalignment. No significant degenerative changes. The visualized cardiomediastinal silhouette and segments of the lungs are within normal limits. No significant soft tissue abnormality. Lumbar spine: No acute fracture or malalignment. No significant degenerative changes. Perispinal soft tissues are within normal limits. An IUD is visualized within the pelvis. XR/XR lumbar spine 2-3V IMPRESSION: No significant radiographic abnormality. If symptoms persist, recommend correlation with a CT or preferable MR.
== END 2021-12-10 10:03 | disposition home or self-care (01) ==
LOC: HO.XRAY 10:02
PROVIDERS: PCP Physician Assistant; Visit Provider Nurse Practitioner Family
DX: M54.50 Low back pain, unspecified (principal); M54.9 Dorsalgia, unspecified
CPT/HCPCS: 72072; 72100

== ENCOUNTER 2022-05-30 15:00 | Emergency (ER) | payer OTHER, SELFPAY | END 2022-05-30 16:38 | disposition left against medical advice (07) | PROVIDERS: Emergency Provider Emergency Medicine; PCP Physician Assistant | DX: M79.605 Pain in left leg (principal) ==

== ENCOUNTER 2022-05-31 09:02 | Emergency (ER) | payer OTHER, SELFPAY ==
--- NOTE | ~2022-05-31 | XR_ITS ---
EXAMINATION: XR KNEE, LEFT CLINICAL INFORMATION: Left knee pain and swelling status post fall. COMPARISON: Left knee radiographs dated 08/19/2020. TECHNIQUE: Four views of the left knee. FINDINGS: There is no acute fracture or dislocation. 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 Small suprapatellar joint effusion. Mild prepatellar soft tissue swelling. XR/XR knee LT 4V IMPRESSION: Mild prepatellar soft tissue swelling and small suprapatellar joint effusion representing interval increase from the previous study. No overt acute osseous abnormality.
[2022-05-31 09:44] VITALS: BP 144/76; PULSE 90; RESP 18; TEMP 36.3; O2SAT 99; BMI 36.0
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
== END 2022-05-31 11:32 | disposition home or self-care (01) ==
PROVIDERS: Emergency Provider Emergency Medicine; PCP Physician Assistant
DX: M25.462 Effusion, left knee (principal); M25.562 Pain in left knee
CPT/HCPCS: 73564; 99282; 99283

== ENCOUNTER 2024-01-23 10:21 | Outpatient (AMB) | payer OTHER, SELFPAY ==
[2024-01-23 10:28] VITALS: BMI 39.0
--- NOTE | 2024-01-23 10:28 | A.OFFVIS_ITS ---
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 Required: No Transformer Assembly Supervisor Services: Transformer Assembly Supervisor Present Information Interpreted: clinical only Frothing Machine Operator: Frothing Machine Operator Present Allergies amoxicillin [AMOXICILLIN] Allergy (Mild, Verified 01/23/24 10:29) RASH Medication List - Last Reconciled 01/23/24 by Vanessa Zamora CNM cetirizine 10 mg PO DAILY 90 days levonorgestrel (Mirena) intrauterine Is last menstrual period known: No (IUD) Do you need a note to return to daycare/school/sports/work: No HPI HPI 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 she feels she is doing pretty well on the pills. she thinks she may have missed 1 pill here there but she also uses condoms as a backup. She cited her last period as the end of November because that is when she was on the cruise and periods she had since were so light she did not even need to use a tampon was just spotting but it was at the appropriate place in the pill pack. I invited her to consider what would an unplanned and unscheduled mean for her life right now, and she thinks it would not be good so I recommend she consider that and try to not miss any pills. Condoms are a good backup and she does use them. We also discussed smoking cessation. she went on a cruise and quit smoking weed and cigarettes during that time and she is just occasionally smoking a cigarette a day discussed smoking cessation. discussed the other health benefits that she will accrue as well as the issues with control pills. Since she is actively working on quitting and she is keeping an eye on her weight and other health issues, she will Continue on pills for year and expect that she will be an EX - smoker very soon. 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 She will be due for her 1st Pap smear next year discussed overall health and staying healthy. [facility] Medical History (Updated 01/23/24 @ 11:18 by Vanessa Zamora CNM) COVID-19 vaccination not done IUD (intrauterine device) in place Nonhealing nonsurgical wound Surgical History (Updated 01/23/24 @ 11:18 by Vanessa Zamora CNM) History of breast lift H/O abdominoplasty Family History Mother No problems noted. Father No problems noted. 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 General: healthy appearing, comfortable, no acute distress, well developed and alert Nutritional Appearance: average body habitus Orientation/consciousness: patient oriented x3 Limitations: no limitations HEENT Head: Yes normocephalic Neck Neck: Yes normal visual inspection Chest Chest palpation & inspection: normal inspection of the chest Breast/axilla inspection: normal inspection of the breasts and normal inspection of the axillae Breast/axilla palpation: normal palpation of the breasts and normal palpation of the axillae Resp Effort & Inspection: normal respiratory effort GI Inspection: Yes normal to inspection, No Abdominal wall edema and No distended Palpation (GI): Soft to palpation and nontender Other: External exam within vagina pink and moist no abnormal discharge cervix is multiparous with Mirena string easily visible extending about 3 cm curled around cervix scant clear discharge. Uterus small midposition nontender adnexa nontender moderate tone with Kegel. General: Yes bladder normal to palpation External Female Exam: normal external appearance and normal appearance of the urethra Speculum Exam - Vagina: normal appearance of the vagina, normal palpation and normal vaginal discharge Speculum Exam - Cervix: normal appearance of the cervix, normal palpation and nontender Bimanual exam- vagina & uterus: normal bimanual exam, normal palpation, uterine size normal, bladder normal to palpation, consistency normal, normal palpation, uterine mobility normal, uterine shape normal, No Cervical tenderness present, non-tender and no cervical motion tenderness Bimanual Exam- Adnexa, other: normal adnexae, no masses, normal and No adnexal tenderness Neuro General: patient oriented x3 Assessment & Plan Assessment & Plan (1) Cervical cancer screening: Code(s): Z12.4 - Encounter for screening for malignant neoplasm of cervix Category: Medical (2) Obesity (BMI 30-39.9): Code(s): E66.9 - Obesity, unspecified Category: Medical (3) H/O abdominoplasty: Comment: 12/11/2020 in the [facility] Code(s): Z98.890 - Other specified postprocedural states Category: Medical (4) History of breast lift: Comment: with breast reduction? Code(s): Z98.890 - Other specified postprocedural states Category: Medical (5) Vaginal itching: Code(s): N89.8 - Other specified noninflammatory disorders of vagina Category: Medical (6) Urinary incontinence: Code(s): R32 - Unspecified urinary incontinence Category: Medical Plan patient is here for her 3 month pill check follow-up. she feels she is doing pretty well on the pills. she thinks she may have missed 1 pill here there but she also uses condoms as a backup. She cited her last period as the end of November because that is when she was on the cruise and periods she had since were so light she did not even need to use a tampon was just spotting but it was at the appropriate place in the pill pack. I invited her to consider what would an unplanned and unscheduled mean for her life right now, and she thinks it would not be good so I recommend she consider that and try to not miss any pills. Condoms are a good backup and she does use them. We also discussed smoking cessation. she went on a cruise and quit smoking weed and cigarettes during that time and she is just occasionally smoking a cigarette a day discussed smoking cessation. discussed the other health benefits that she will accrue as well as the issues with control pills. Since she is actively working on quitting and she is keeping an eye on her weight and other health issues, she will Continue on pills for year and expect that she will be an EX - smoker very soon. 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 She will be due for her 1st Pap smear next year discussed overall health and staying healthy. -----Discussed in this visit the following: healthy balanced diet, regular and consistent exercise, getting recommended health screens, doing the best she can for her particular health concerns, kegel exercises, pap smear screening and followup recommendations, mammography screening and SBE, normal changes in cycles in her life stage--- . Reviewed with her to the best of her ability what results she could find in her phone and since no Pap smear was done and we had a discussion about whether not do the Pap smear, she decided to have it done while she was here for the exam as she could not find results in her phone. Pap smear was done along with testing for gonorrhea chlamydia trichomoniasis as well as Prudence and Gardnerella I showed her cervix which looked healthy and clear with her Mirena string. Discussed intervals for Pap smears discussed that will await the testing and other results she did not need or want blood work for STIs. Discussed the changing recommendations about how long the Mirena can be used. However I also cautioned that if she experiences any return of regular cycling with signs of ovulation and menses that would be assigned that the Mirena is probably no longer functioning for control and she should have it replaced and it would be easier to replace when she has her period. To the best of her recollection it would be due for replacement next year probably towards June however if she returns to regular cycles, it should be replaced then Also. discussed incontinence she would like a referral to physical therapy for pelvic floor teaching she was able to do a fairly good sustained Kegel but I am offering the referral for PT and place the referral for her her Orders: Referrals Pelvic Fire Services Plumber Referral M62.89 - Other specified disorders of muscle Coding Level of Care Code New Pt Prev Care [id number] Diagnoses Cervical cancer screening Z12.4 Obesity (BMI 30-39.9) E66.9 H/O abdominoplasty Z98.890 History of breast lift Z98.890 Vaginal itching N89.8 Urinary incontinence R32
== END 2024-01-23 11:28 | disposition home or self-care (01) ==
LOC: HO.HWSM 10:21
PROVIDERS: PCP Physician Assistant; Visit Provider Advanced Practice Midwife
DX: Z01.419 Encounter for gynecological examination (general) (routine) without abnormal findings (principal); N89.8 Other specified noninflammatory disorders of vagina; R32 Unspecified urinary incontinence; E66.9 Obesity, unspecified
CPT/HCPCS: 99385

== ENCOUNTER 2024-01-23 10:21 | Outpatient (REF) | payer OTHER, SELFPAY ==
[2024-01-24 01:46] LABS: CT PCR NOT DETECTED (Not Detect.); NG PCR NOT DETECTED (Not Detect.)
[2024-01-24 09:35] LABS: Bacterial Vaginosis PCR POSITIVE (Negative); Candida Group PCR NOT DETECTED (Not Detect); Candida glab krusei PCR NOT DETECTED (Not Detect); Trichomonas vaginalis PCR NOT DETECTED (Not Detect)
[2024-01-26 20:58] LABS: HPV 16 RNA NOT DETECTED (NOT DETECTED); HPV mRNA E6/E7 Detected (Not Detected)
== END 2024-01-23 10:22 | disposition home or self-care (01) ==
LOC: HO.LAB 10:21
PROVIDERS: PCP Physician Assistant; Visit Provider Advanced Practice Midwife
DX: Z01.419 Encounter for gynecological examination (general) (routine) without abnormal findings (principal); Z11.51 Encounter for screening for human papillomavirus (HPV); Z20.2 Contact with and (suspected) exposure to infections with a predominantly sexual mode of transmission; N89.8 Other specified noninflammatory disorders of vagina; M62.89 Other specified disorders of muscle; R32 Unspecified urinary incontinence
CPT/HCPCS: 0352U; 36415; 87491; 87591; 87624; 87625; 88175; 99385

== ENCOUNTER 2024-11-15 15:53 | Outpatient (AMB) | payer MEDICAID, SELFPAY ==
[2024-11-15 15:55] VITALS: BP 122/74; PULSE 99; TEMP 36.3; O2SAT 99; BMI 39.0
--- NOTE | 2024-11-15 15:55 | A.OFFPC_ITS ---
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 Accompanied by: Self / Same As Patient Allergies amoxicillin [AMOXICILLIN] Allergy (Mild, Verified 11/15/24 16:13) RASH Medication List - Last Reconciled 11/15/24 by Kelvin Howard PA-C cetirizine 10 mg PO DAILY 90 days levonorgestrel (Mirena) intrauterine Tobacco use date assessed: 11/15/24 Dental Screening Dental Screen Date: 11/15/24 Did you have a dental visit in the last 12 months?: Yes Did you have a dental problem in the last 6 months where you did not have access to dental care?: No Was dental information given to patient?: Patient has dentist HPI Overdue for PE HPI Details Patient is a 38-year-old female here today for a routine annual physical. Patient has a past medical history significant for obesity. She was previously noted to have elevated blood pressure readings at her OBGYN visit, prompting a referral for further assessment. At this visit, her blood pressure reads 122/74 mmHg, which is normal. She denies any symptoms typically a ssociated with hypertension complications and has not been on or started any antihypertensive medications prior to this encounter. .. 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 Declines flu vaccines [facility] Medical History (Updated 11/15/24 @ 16:39 by Kelvin Howard PA-C) COVID-19 vaccination not done IUD (intrauterine device) in place Nonhealing nonsurgical wound Surgical History (Updated 11/15/24 @ 16:39 by Kelvin Howard PA-C) H/O abdominoplasty Family History Mother No problems noted. Father No problems noted. Social History (Updated 11/15/24 @ 16:17 by Kelvin Howard PA-C) Housing: House Alcohol intake: current Alcohol intake frequency: a few times a month Alcohol type: wine Patient Tobacco Use Status: Never used Tobacco e-Cigarette/Vaping Use: Never Used Second Hand Smoke Exposure: Yes Substance Use Type: Marijuana service: No Current occupational status: employed Current occupation: [employer] Current occupational exposures/hazards: No Cognitive needs: No Hearing needs: No Vision needs: No Female Reproductive History Menstrual Age of Menarche: 15 Questionnaire PHQ-9 Over the last 2 weeks, how often have you been bothered by any of the following problems? 1. Little interest or pleasure in doing things: not at all 2. Feeling down, depressed, or hopeless: not at all 3. Trouble falling or staying asleep, or sleeping too much: not at all 4. Feeling tired or having little energy: not at all 5. Poor appetite or overeating: not at all 6. Feeling bad about yourself - or that you are a failure or have let yourself or your family down: several days 7. Trouble concentrating on things, such as reading the newspaper or watching television: not at all 8. Moving or speaking so slowly that other people could have noticed. Or the opposite - being so fidgety or restless that you have been moving around a lot more than usual: not at all 9. Thoughts that you would be better off or of hurting yourself in some way : not at all Total score: 1 Depression Screening Interpretation: Negative Depression Screening Done: Yes 15524 - PHQ-9 Billing: Yes Source: Developed by Drs. Harmeet Richard, Rosamaria Cotton, Salvador Banks and colleagues, with an educational hannah from [employer]. Thrive Questionnaire Date Thrive assessed: 11/15/24 I am a: Patient What is your living situation today?: I have a steady place to live Within the past 12 months, did the food you bought not last and you didn't have the money to get more?: Never true Within the past 12 months, did you worry whether your food would run out before you got money to buy more?: Never true Do you have trouble paying for medicines?: No Do you have trouble getting transportation to medical appointments?: No Do you have trouble paying your heating and electricity bill?: No Do you have trouble taking care of your child, family member or friend?: No Do you have trouble with day-to-day activities such as bathing, preparing meals, shopping, managing finances, etc.?: No Are you currently unemployed and looking for a job?: Yes Are you interested in more education?: No Please select the resources that you would like help with: None Currently or been in a relationship where the following occur: No concerns reported THRIVE Score: 0 AUDIT C Alcohol Use Questionnaire (AUDIT-C) 1. How often do you have a drink containing alcohol?: Monthly or less 2. How many drinks containing alcohol do you have on a typical day when you are drinking?: 1 or 2 3. How often do you have six or more drinks on one occasion?: Never Total Score: 1 JOHAN-7 AMB Questionnaire JOHAN-7 Date JOHAN - 7 assessed: 11/15/24 Feeling nervous, anxious, or on edge: 1 = Several days Not being able to stop or control worryin = Several days Worrying too much about different things: 1 = Several days Trouble relaxin = Several days Being so restless that it is hard to sit still: 0 = Not at all Becoming easily annoyed or irritable: 0 = Not at all Feeling afraid as if something awful might happen: 0 = Not at all Total JOHAN-7 score (0-4 normal; 5-9 mild; 10-14 moderate; 15-21 severe): 4 Source: Developed by Drs. Harmeet Richard, Rosamaria Cotton, Salvador Banks and colleagues, with an educational hannah from [employer]. JOHAN-7 Assessment Billing JOHAN-7 Assessment Tool: JOHAN-7 Assessment 61099 Review of Systems Const Denies body aches, Denies chills, Denies excessive sweating, Denies fatigue, Denies fever(s) and Denies headache(s) Eyes Denies blurry vision ENT Denies dysphagia, Denies vertigo, Denies dizziness, Denies headache(s), Denies hearing loss and Denies tinnitus Card Denies chest pain, Denies chest pain with activity, Denies syncope, Denies irregular heart rhythm and Denies dyspnea Resp Denies chest congestion, Denies cough, Denies hemoptysis, Denies dyspnea and Denies wheezing GI Denies abdominal pain, Denies melena, Denies hematochezia, Denies coffee ground emesis, Denies dysphagia, Denies diarrhea, Denies nausea and Denies vomiting Denies urinary frequency, Denies dysuria, Denies urinary hesitancy and Denies urinary urgency Musc Denies arthralgias, Denies limited range of motion, Denies muscle cramps and Denies muscle weakness Skin/Breast Denies rash and Denies skin ulcer Neuro Denies Abnormal speech present, Denies confusion, Denies vertigo, Denies dizziness, Denies syncope, Denies headache(s), Denies memory loss and Denies seizure-like activity Psych Denies anxiety, Denies confusion, Denies depression, Denies memory loss, Denies panic attacks and Denies paranoia Endo Denies excessive sweating, Denies fatigue, Denies flushing, Denies polydipsia and Denies polyuria Aller/Immun Denies wheezing Physical exam (Primary Care) Vital Signs: Last Vital Signs Temp 97.3 F 11/15/24 15:55 Pulse 99 11/15/24 15:55 BP 122/74 11/15/24 15:55 Pulse Ox 99 11/15/24 15:55 Oxygen Delivery Method Room Air 11/15/24 15:55 BMI result Body Mass Index 39.0 BMI Assessment/Plan discussion: High BMI High, discussed plan: lifestyle, weight reduction, dietary and physical activity Tobacco/Smoking Status: Tobacco use Status Tobacco use date assessed 11/15/24 11/15/24 16:03 Patient Tobacco Use Status Never used Tobacco 11/15/24 15:55 e-Cigarette/Vaping Use Never Used 11/15/24 15:55 PHQ-9: PHQ-9 Score PHQ-9: Total score 1 11/15/24 15:59 Depression Screening Interpretation: Negative Thrive Assessment: Date of Thrive Assessment Date Thrive assessed 11/15/24 11/15/24 15:59 Currently or been in a relationship where the following occur: No concerns reported Const General: cooperative, comfortable, no acute distress, alert and awake; No confusion Orientation/consciousness: oriented to person, oriented to place, patient oriented x3 and No confusion HENMT Head: Yes normocephalic Ears: external ears normal and TM's normal bilaterally Face and sinus: No sinus tenderness Mouth: Normal oral and palatal mucosa present and tongue normal Teeth and gingiva: dentition normal and gingiva normal Throat: Yes posterior oropharynx normal, Yes tonsils normal and Yes uvula midline Eyes Conjunctivae: conjunctivae normal Sclerae: sclerae normal Pupils: Equal, round and reactive pupils present EOM: EOMs intact bilaterally Direct Ophthalmoscopy: No no photophobia Neck Neck: Yes no lymphadenopathy, No tender and Yes no JVD Thyroid: Thyroid normal Carotids: no bruits Chest Chest palpation & inspection: no tenderness Resp Effort & Inspection: normal respiratory effort, no audible wheezes, not labored and no stridor Auscultation: no crackles, no rales, no rhonchi and no wheezes Cardio Jugular venous distension: no JVD Rate: regular rate, not bradycardic and not tachycardic Rhythm: regular rhythm Bruits: no carotid bruits Peripheral pulses: Peripheral pulses 2+ throughout GI Inspection: Yes normal to inspection, No abdominal wall ecchymosis and No visible herniation Palpation (GI): Soft to palpation, nontender, no guarding, not rigid and No hepatosplenomegaly present Auscultation: normoactive bowel sounds General: Yes no CVA tenderness Back/Spine/Pelvis Back: no CVA tenderness and No back tenderness Cervical Spine: cervical ROM normal Thoracic/Lumbar Spine: thoracic and lumbar spine normal to inspection, straight leg raise negative bilaterally, No thoraco-lumbar ROM limited and No lumbar spinal tenderness Skin Lesions: no lesions Rashes: no rashes Wounds: no wounds Neuro General: oriented to person, oriented to place, patient oriented x3, CN's II-XI intact bilaterally and No confusion Cranial nerves: Yes Equal, round and reactive pupils present and Yes Normal accommodation reflex present Cognition (Neuro): normal cognition Speech: No Abnormal speech present Gait exam (Neuro): Normal gait present Motor exam (neuro): 5/5 motor strength present throughout Extrem Right upper extremity: full ROM; no cyanosis Left upper extremity: full ROM; no cyanosis Right lower extremity: no edema Left lower extremity: no edema Psych Appearance: grossly normal Mental Status: mental status grossly normal Affect: normal affect Attitude: cooperative Thought process: Normal thought process present Coding Level of Care Code Est Pt Prev Care 18-39y(81621) Diagnoses Annual physical exam Z00.00 Screening for diabetes mellitus (DM) Z13.1 Class 2 obesity E66.812 Additional Codes JOHAN-7 Assessment Billing - JOHAN-7 Assessment Tool: JOHAN-7 Assessment 02228 ([id number]) PHQ-9 - 64227 - PHQ-9 Billing: Yes ([id number]) Assessment & Plan Assessment & Plan (1) Annual physical exam: Code(s): Z00.00 - Encounter for general adult medical examination without abnormal findings Category: Medical Plan: As per HPI (2) Screening for diabetes mellitus (DM): Code(s): Z13.1 - Encounter for screening for diabetes mellitus Category: Medical Plan: As per HPI (3) Class 2 obesity: Code(s): E66.812 - Obesity, class 2 Category: Medical Plan: Patient does understand her BMI is over 35 and will work on being more physically active and adapting to better eating habits to reduce her weight Orders: Orders Complete Blood Count no Diff Today Z13.1 - Encounter for screening for diabetes mellitus Comprehensive [place]. Panel Fast Today Z13.1 - Encounter for screening for diabetes mellitus TSH reflex Free T4 Today E66.812 - Obesity, class 2 Medications: Refilled cetirizine 10 mg PO DAILY 90 days 90 tabs 1RF L50.8 - Other urticaria
--- OUTSIDE RECORDS SUMMARY | 2024-11-15 16:08 | XMS_ITS | Clinical Summary ---
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 Name Role Phone Kassandra Matt MD Primary Care Provider [phone] Allergies No known active allergies Medications No known medications Active Problems Problem Noted Date Diagnosed Date Bacterial vaginosis 06/09/2024 Assessment & Plan (06/09/2024 9:49 PM EST): Will treat with FLagyl Vaginal discharge 06/09/2024 Encounters Date Type Department Care Team Description 11/13/2024 Telephone Obstetrics and Gynecology - [address] [phone] Radha Rojas CNM Advice Only 11/08/2024 10:40 AM EDT Lab Draw Station - [address] Screen for STD (sexually transmitted disease) 11/08/2024 10:00 AM EDT Office Visit Obstetrics and Gynecology - [address] [phone] Radha Rojas CNM Screen for STD (sexually transmitted disease) (Primary Dx); Vaginal discharge; Hypertension, unspecified type; Intrauterine device surveillance 10/10/2024 Telephone Obstetrics and Gynecology - [address] [phone] Gardenia Loomis CNM Results from Last 3 Months Surgical History Surgery Date Site/Laterality Comments COLPOSCOPY 2008 PROCEDURE: AR COLPOSCOPY ENTIRE VAGINA W/VAGINA/CERVIX BX BELT ABDOMINOPLASTY 12/2020 PROCEDURE: HISTORICAL OSKAR HE Medical History Medical History Date Comments Anxiety state DX:Anxiety state Essential hypertension DX:Essent ial hypertension Type A blood, Rh positive DX:Typ e A blood, Rh positive ASCUS with positive high ris k HPV cervical 2008 DX:ASCUS with positive high risk HPV cervical IUD (intrauterine device) in place 03/2019 DX:IUD (intrauterine device) in place Family History Medical History Relation Name Comments Other: overdose Father No Known Problems Paternal Grandfather No Known Problems Paternal Grandmother Breast cancer Neg Hx Cervical cancer Neg Hx Colon cancer Neg Hx Ovarian cancer Neg Hx Uterine cancer Neg Hx Relation Name Status Comments Brother 1 Alive Brother 2 Alive Brother 3 Alive Father Maternal Grandfather Maternal Grandmother Alive Mother Alive Paternal Grandfather Paternal Grandmother Sister 1 Alive Sister 2 Alive Social History Tobacco Use Types Packs/Day Years Used Date Smoking Tobacco: Never Smokeless Tobacco: Never Alcohol Use Standard Drinks/Week Comments Yes 0 (1 standard drink = 0.6 oz pur e alcohol) social Comments No Sex and Gender Information Value Date Recorded Sex Assigned at Not on file Legal Sex Female 10:08 PM EST Gender Identity Not on file Sexual Orientation Not on file Obstetrics History Para Term AB IAB SAB Ectopic Multiple Livin g Live Births 5 3 Date Outcome GA Total Labor Labor/2nd/3rd Weight Sex Type Anes PTL Tash A1 A5 Name Clin Last Filed Vital Signs Vital Sign Reading Time Taken Comments Blood Pressure 142/90 11/08/2024 10:22 AM EDT Pulse 80 11/08/2024 10:11 AM EDT Temperature - - Respiratory Rate 16 06/07/2024 1:22 PM EST Oxygen Saturation - - Inhaled Oxygen Concentration - - Weight 103 kg (227 lb) 11/08/2024 10:11 AM EDT Height 162.6 cm (5' 4 ) 06/07/2024 1:22 PM EST Body Mass Index 38.96 06/07/2024 1:22 PM EST Plan of Treatment Upcoming Encounters Date Type Department Care Team (Late st Contact Info) Description 02/22/2025 9:20 AM EDT Office Visit Obstetrics and Gynecology [address] [phone] Radha Rojas, [facility] [address] [place] [address] Health Maintenance Due Date Last Done Comments Hepatitis B Vaccines (1 of 3 - 19+ 3-dose series) 2005 Cholesterol Screening (Lipid Panel) 06/03/2021 Social Influencers of Health Screening 06/03/2021 COVID-19 Vaccine (2 - 2023-2 5 season) 2024 11/09/2021 Hypertension/CHF/CAD Annual BMP Blood Test 06/07/2024 Influenza Vaccine (Season Ended) 2025 03/30/2017 Depression Screening 06/07/2025 06/07/2024 Cervical Cancer Screening: P ap Smear 11/22/2026 11/23/2023, 01/22/2020 DTaP,Tdap,and Td Vaccines (3 - Td or Tdap) 07/27/2031 07/27/2021, 03/18/2017 HIV Screening Completed 11/08/2024, 11/23/2023 Hepatitis C Screening Completed 11/08/2024 HIB Vaccines Aged Out No longer eligi ble based on patient's age to complete this topic HPV Vaccines Aged Out No longer eligi ble based on patient's age to complete this topic Hepatitis A Vaccines Aged Out No long er eligible based on patient's age to complete this topic IPV Vaccines Aged Out No longer eligi ble based on patient's age to complete this topic MMR Vaccines Aged Out No longer eligi ble based on patient's age to complete this topic Meningococcal ACWY Vaccine Aged Out N o longer eligible based on patient's age to complete this topic Meningococcal B Vaccine Aged Out No l onger eligible based on patient's age to complete this topic Pneumococcal Vaccine: Pediatrics (0 to 5 Years) and At-Risk Patients (6 to 64 Years) Aged Out No longer eligible b ased on patient's age to complete this topic RSV Immunization Patients Under 20 months Aged Out No longer eligible b ased on patient's age to complete this topic Varicella Vaccines Aged Out No longer eligible based on patient's age to complete this topic Procedures Procedure Name Priority Date/Time Associated Diagnosis Comments TRICHOMONAS VAGINALIS ANTIGEN Routine 11/14/2024 10:29 AM EDT Screen for STD (sexually transmitted disease) WET PREP, GENITAL Routine 11/14/2024 10: 29 AM EDT Screen for STD (sexually transmitted disease) CHLAMYDIA TRACHOMATIS AND NEISSERIA GONORRHOEAE PCR Routine 11/14/2024 10:29 AM EDT Screen for STD (sexually transmitted disease) HIV 1, 2 ANTIBODY, P24 ANTIGEN WITH REFLEX TO DIFFERENTIATION Routine 11/08/2024 10:53 AM EDT Screen for STD (sexually transmitted disease) HEPATITIS B SURFACE ANTIGEN WITH CONFIRMATION Routine 11/08/2024 10:53 AM EDT Screen for STD (sexually transmitted disease) TREPONEMA PALLIDUM ANTIBODY WITH REFLEX TO RPR AND PARTICLE AGGLUTINATION Routine 11/08/2024 10:53 AM EDT Screen for STD (sexually transmitted disease) HEPATITIS C ANTIBODY Routine 11/08/2024 10:53 AM EDT Screen for STD (sexually transmitted disease) PAP SMEAR Routine 11/23/2023 from Last 3 Months or Most Recently Relevant to Health Maintenance Results * Trichomonas vaginalis antigen (11/14/2024 10:29 AM EDT) Trichomonas vaginalis Negative Negative 11/14/2024 8:25 PM EDT [facility] Swab Vaginal structure / Unknown Non-blood Collection / Unknown 11/14/2024 10:29 AM EDT 11/14/2024 10:29 AM EDT us Radha CLEMENT LAB MICROBIOLOGY - GENERAL ORD ERABLES Final Result [facility] [address] [place] [address], * Chlamydia trachomatis and Neisseria gonorrhoeae molecular study (11/14/2024 10:29 AM EDT) Neisseria gonorrhoeae PCR Negative Negative LAB MOLECULAR DIAGNOSTICS METHOD 11/15/2024 8:39 AM EDT [facility] Chlamydia trachomatis PCR Negative Negative LAB MOLECULAR DIAGNOSTICS METHOD 11/15/2024 8:39 AM EDT [facility] Swab Vaginal structure / Unknown Non-blood Collection / Unknown 11/14/2024 10:29 AM EDT 11/14/2024 10:29 AM EDT [facility] - GENERAL ORD ERABLES Final Result [facility] [address] [place] [address], * (ABNORMAL) Wet prep, genital (11/14/2024 10:29 AM EDT) Clue Cells, Wet Prep Positive(A) Negative 11/14/2024 8:19 PM EDT [facility] Yeast, Wet Prep Negative Negative 11/14/2024 8:19 PM EDT [facility] Trichomonas, Wet Prep Indeterminate Negative 11/14/2024 8:19 PM EDT [facility] Comment:Refer to Trichomonas antigen. Swab Vaginal structure / Unknown Non-blood Collection / Unknown 11/14/2024 10:29 AM EDT 11/14/2024 10:29 AM EDT Radha Rojas [facility] MICROBIOLOGY - GENERAL ORD ERABLES Final Result [facility] [address] [place] [address], [place] [phone] * Hepatitis C antibody (11/08/2024 10:53 AM EDT) Hepatitis C Antibody Negative Negative LAB CHEMISTRY METHOD 11/08/2024 6:41 PM EDT [facility] Blood Venous blood specimen / Unknown Venipuncture / Unknown 11/08/2024 10:53 AM EDT 11/08/2024 10:53 AM EDT us Radha Rojas [facility] BLOOD ORDERABLES Final Res ult Performing Organization Address [facility]/ZIP Co de Phone Number [facility] [address] [place] [address], [place] [phone] * HIV 1,2 antibody, p24 antigen with reflex to differentiation (11/08/2024 10:53 AM EDT) HIV Combo AB/AG Negative Negative LAB CHEMISTRY METHOD 11/08/2024 6:41 PM EDT [facility] Blood Venous blood specimen / Unknown Venipuncture / Unknown 11/08/2024 10:53 AM EDT 11/08/2024 10:53 AM EDT Narrative [facility] - 11/08/2024 6:41 PM EDT This assay is a 4th generation assay allowing for earlier detection of HIV infection by detecting the presence of the HIV-1 p24 antigen as well as the traditional antibodies to HIV type 1 (including group O) and type 2. ??Use of a 4th generation assay is the current CDC recommendation for HIV screening. us Radha Rojas [facility] BLOOD ORDERABLES Final Res ult Performing Organization Address City/[facility]/ZIP Co de Phone Number [facility] [address] [place] [address], [place] [phone] * Hepatitis B surface antigen with reflex to confirmation (11/08/2024 10:53 AM EDT) Hepatitis B Surface Ag Negative Negative LAB CHEMISTRY METHOD 11/08/2024 6:12 PM EDT [facility] Blood Venous blood specimen / Unknown Venipuncture / Unknown 11/08/2024 10:53 AM EDT 11/08/2024 10:53 AM EDT Narrative [facility] - 11/08/2024 6:12 PM EDT Over the counter supplements containing high doses of biotin may interfere with this assay. ??If interference is suspected, patients shoud be retested after refraining from biotin supplements for 72 hours. Radha Rojas [facility] BLOOD ORDERABLES Final Res ult Performing Organization Address City/[facility]/ZIP Co de Phone Number [facility] [address] [place] [address], [place] [phone] * Treponema pallidum antibody with reflex to RPR and particle agglutination (11/08/2024 10:53 AM EDT) T. Pallidum Antibodies Negative Negative LAB CHEMISTRY METHOD 11/08/2024 7:49 PM EDT [facility] Blood Venous blood specimen / Unknown Venipuncture / Unknown 11/08/2024 10:53 AM EDT 11/08/2024 10:53 AM EDT Radha Carreon [facility] LAB BLOOD ORDERABLES Final Res ult Performing Organization Address [facility] Co de Phone Number [facility] [address] [place] [address], [place] [phone] * Pap smear (11/23/2023) 11/23/2023 Narrative HISTORICAL TESTING LAB RESULTING AGENCY - 2023 4:25 PM EDT [id number] THINPREP PAP, IMAGED: ATYPICAL SQUAMOUS CELLS OF UNDETERMINED SIGNIFICANCE (ASCUS) . FREDDIE GREEN M.D. , PATHOLOGIST (CASE ELECTRONICALLY SIGNED 12 02 2023) RESULT OF APTIMA HIGH RISK HPV ASSAY: HIGH RISK HPV: ??NEGATIVE (SEROTYPES 16,18,31,33,35,39,45,51,52,56,58,59,66,68) COMPLETED ON 2023-11-24 ADEQUACY: SATISFACTORY ENDOCERVICAL/TRANSFORMATION ZONE COMPONENT PRESENT. SOURCE: THINPREP PAP HPV ANY DX: ??REFLEX 16 AND 18, CERVICAL, IMAGED CLINICAL INFORMATION: HPV ANY DIAGNOSIS. PAP HX NEGATIVE, IUD, [Z01.419] Radha Rojas CN LAB CYTOLOGY ORDERABLES Final Result HISTORICAL TESTING LAB RESULTING AGENCY from Last 3 Months or Most Recently Relevant to Health Maintenance Insurance MEDICAID - [place] Care Teams Printed Circuit Boards Laminator Relationship Specialty Start Date End Date Kassandra Matt MD [address] [facility] , [address] [facility] D/B/A: [facility] [place] PCP - General Internal Medicine 10/17/18
--- OUTSIDE RECORDS SUMMARY | 2024-11-15 16:08 | XMS_ITS | Encounter Summary ---
Author Organization [facility] Address [id number] [place] [phone] Care Team Providers Care Director Corporate Name Role Phone Kassandra Matt MD Primary Care Provider [phone] Reason for Visit * Reason Onset Date Comments Advice Only 11/13/2024 Encounter Details Date Type Department Care Team ([facility] st Contact Info) Description 11/13/2024 Telephone Obstetrics and Gynecology - [place] [address] [place] [phone] Radha Rojas CNM [address] [place] [address] Advice Only Social History Tobacco Use Types Packs/Day Years Used Date Smoking Tobacco: Never Smokeless Tobacco: Never Alcohol Use Standard Drinks/Week Comments Yes 0 (1 standard drink = 0.6 oz pur e alcohol) social Comments No Sex and Gender Information Value Date Recorded Sex Assigned at Not on file Legal Sex Female 10:08 PM EST Gender Identity Not on file Sexual Orientation Not on file documented as of this encounter Progress Notes * Rosa Burnett MA - 11/13/2024 1:37 PM EDT Patient is coming in today per sara to self swab * Claire Joya - 11/13/2024 11:15 AM EDT Chief Complaint/problem: patient called is upset she received a call stating she needs to be retested ,wants to understand why How long has the patient had this problem? Pt???s CARPENTER MATE provider: Radha Rojas CNM Last menstrual period (LMP) or EDC (due date): na documented in this encounter Plan of Treatment Upcoming Encounters Date Type Department Care Team (Late st Contact Info) Description 02/22/2025 9:20 AM EDT Office Visit Obstetrics and Gynecology - [place] [address] [place] [address] Radha Rojas, IDANIA [address] [place] [address] documented as of this encounter Visit Diagnoses Not on filedocumented in this encounter Additional Health Concerns Assessment Noted Time PHQ-9 Depression Total Score: 0 06/07/20 24 1:08 PM EST documented as of this encounter Care Teams Director Corporate Relationship Specialty Start Date End Date Kassandra Matt MD [address] [facility] , [address] [facility] Physician Associ D/B/A: [facility] VICTORINO Telles PCP - General Internal Medicine 10/17/18 documented as of this encounter
--- OUTSIDE RECORDS SUMMARY | 2024-11-15 16:08 | XMS_ITS | Encounter Summary ---
Author Organization [facility] Address [address] [place] [address] Care Team Providers Care Public Relations Officer Name Role Phone Kassandra Matt MD Primary Care Provider [phone] Reason for Referral * Consultation (Urgent) - Closed Specialty Diagnoses / Procedures Referred By Guicho hull Referred To Contact Internal Medicine Diagnoses Hypertension, unspecified type Radha Rojas CNM [address] [place], [place] Phone: tel: fax: Referral ID Status Reason Start Date Expiration Date V isits Requested Visits Authorized [id number] Closed Specialty Services Required 11/08/2024 11/08/2025 1 1 Reason for Visit * Reason Comments STD Testing Encounter Details Date Type Department Care Team ([facility] Contact Info) Description 11/08/2024 10:00 AM EDT Office Visit Obstetrics and Gynecology - [address] [phone] Radha Rojas CNM [address] [place] [address] Screen for STD (sexually transmitted disease) (Primary Dx); Vaginal discharge; Hypertension, unspecified type; Intrauterine device surveillance Social History Tobacco Use Types Packs/Day Years [...] on file documented as of this encounter Last Filed Vital Signs Vital Sign Reading Time Taken Comments Blood Pressure 142/90 11/08/2024 10:22 AM EDT Pulse 80 11/08/2024 10:11 AM EDT Temperature - - Respiratory Rate - - Oxygen Saturation - - Inhaled Oxygen Concentration - - Weight 103 kg (227 lb) 11/08/2024 10:11 AM EDT Height - - Body Mass Index 38.96 06/07/2024 1:22 PM EST documented in this encounter Progress Notes * Jose Vincent MA - 11/08/2024 10:00 AM EDTAddended by: JOSE VINCENT on: 11/14/2024 10:29 AM Modules accepted: Orders * Radha Rojas CNM - 11/08/2024 10:00 AM EDT CHIEF COMPLAINT: STD Testing IDENTIFIER:Leanne Acosta is a 38 y.o. female. HPI: Leanne presents to office for STD testing. She is sexually active with long distance relationship, onemale partner for 4-5yrs. She has some white watery discharge, no odor or itching. Using Mirena IUD since 2019. Her BP is elevated today, she is asymptomatic, denies CP, SOB, JOSHI or dizziness. She states she usedto be on antihypertensives but stopped it 1yr ago because she felt fine . 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 PAST MEDICAL HISTORY: OB History Para Term AB Living 5 3 SAB IAB Ectopic Multiple Live Births # Outcome Date GA Lbr Pavel/2nd Weight Sex Type Anes PTL Lv 5 4 3 2 1 Patient Active Problem List Diagnosis Bacterial vaginosis Vaginal discharge Past Surgical History: Procedure Laterality Date BELT ABDOMINOPLASTY 12/2020 PROCEDURE: HISTORICAL TUMMY TUCK COLPOSCOPY 2008 PROCEDURE: NE COLPOSCOPY ENTIRE VAGINA W/VAGINA/CERVIX BX SOCIAL HISTORY: Social History Tobacco Use Smoking status: Never Smokeless tobacco: Never Substance Use Topics Alcohol use: Yes Comment: social FAMILY HISTORY: Family History Problem Relation Name Age of Onset Other (Other: overdose) Father 41.00 No Known Problems Paternal Grandmother No Known Problems Paternal Grandfather Breast cancer Neg Hx Colon cancer Neg Hx Uterine cancer Neg Hx Cervical cancer Neg Hx Ovarian cancer Neg Hx MEDICATIONS: There are no discontinued medications. ACTIVE MEDICATIONS: No outpatient medications have been marked as taking for the 11/08/24 encounter (Office Visit) with Radha Rojas CNM. PHYSICAL EXAM: Visit Vitals BP (!) 142/90 Pulse 80 Wt 103 kg (227 lb) LMP (Approximate) BMI 38.96 kg/m?? OB Status IUD Smoking Status Never BSA 2.06 m?? 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 IUD strings per os NEURO: Awake, alert and oriented x 3 LABS: NA IMPRESSION: 1. Screen for STD (sexually transmitted disease) 2. Vaginal discharge 3. Hypertension, unspecified type 4. Intrauterine device surveillance PLAN: STD testing today, condoms encouraged Reviewed vaginal hygiene measures Discouraged douching, harsh soaps, vaginal sprays or deodorants Encouraged loose cotton underwear Follow up with PCP for high blood pressure- reviewed reasons to seek medical care sooner. RTO for annual and sooner if needed Medication and lab orders: Orders Placed This Encounter Procedures Chlamydia trachomatis and Neisseria gonorrhoeae molecular study Wet prep, genital HIV 1,2 antibody, p24 antigen with reflex to differentiation Hepatitis B surface antigen with reflex to confirmation Treponema pallidum antibody with reflex to RPR and particle agglutination Hepatitis C antibody Ambulatory referral to Internal Medicine Radha Rojas CNM documented in this encounter Plan of Treatment Upcoming Encounters Date Type Department Care Team (Late st Contact Info) Description 02/22/2025 9:20 AM EDT Office Visit Obstetrics and Gynecology - [address] [phone] Radha Rojas CNM [address] [place] [phone] Scheduled Referrals Name Type Priority Associated Diagnoses Order Schedule Ambulatory referral to Internal Medicine Outpatient Referral Routine Hypertension, unspecified type 1 Occurrences starting 11/08/2024 until 11/08/2025 documented as of this encounter Procedures Procedure Name Priority Date/Time Associated Diagnosis Comments TRICHOMONAS VAGINALIS ANTIGEN Routine 11/14/2024 10:29 AM EDT Screen for STD (sexually transmitted disease) CHLAMYDIA TRACHOMATIS AND NEISSERIA GONORRHOEAE PCR Routine 11/14/2024 10:29 AM EDT Screen for STD (sexually transmitted disease) WET PREP, GENITAL Routine 11/14/2024 10: 29 AM EDT Screen for STD (sexually transmitted disease) documented in this encounter Results * Trichomonas vaginalis antigen (11/14/2024 10:29 AM EDT) Trichomonas vaginalis Negative Negative 11/14/2024 8:25 PM EDT [facility] Swab Vaginal structure / Unknown Non-blood Collection / Unknown 11/14/2024 10:29 AM EDT 11/14/2024 10:29 AM EDT Radha CLEMENT LAB MICROBIOLOGY - GENERAL ORD ERABLES Final Result [facility] [address] [place] [address], * (ABNORMAL) Wet prep, genital (11/14/2024 10:29 AM EDT) Clue Cells, Wet Prep Positive(A) Negative 11/14/2024 8:19 PM EDT [facility] Yeast, Wet Prep Negative Negative 11/14/2024 8:19 PM EDT [facility] Trichomonas, Wet Prep Indeterminate Negative 11/14/2024 8:19 PM EDT [facility] Comment:Refer to Trichomonas antigen. Swab Vaginal structure / Unknown Non-blood Collection / Unknown 11/14/2024 10:29 AM EDT 11/14/2024 10:29 AM EDT Radha Rojas [facility] MICROBIOLOGY - GENERAL ORD ERABLES Final Result [facility] [address] [place] [address], [place] [phone] * Chlamydia trachomatis and Neisseria gonorrhoeae molecular study (11/14/2024 10:29 AM EDT) Pathologist [facility] Neisseria gonorrhoeae PCR Negative Negative LAB MOLECULAR DIAGNOSTICS METHOD 11/15/2024 8:39 AM EDT [facility] Chlamydia trachomatis PCR Negative Negative LAB MOLECULAR DIAGNOSTICS METHOD 11/15/2024 8:39 AM EDT [facility] Swab Vaginal structure / Unknown Non-blood Collection / Unknown 11/14/2024 10:29 AM EDT 11/14/2024 10:29 AM EDT us Radha CLEMENT LAB MICROBIOLOGY - GENERAL ORD ERABLES Final Result Performing Organization Address City/[facility]/ZIP Co de Phone Number [facility] [address] [place] [address], [place] [phone] * Hepatitis C antibody (11/08/2024 10:53 AM EDT) Pathologist [facility] Hepatitis C Antibody Negative Negative LAB CHEMISTRY METHOD 11/08/2024 6:41 PM EDT [facility] Blood Venous blood specimen / Unknown Venipuncture / Unknown 11/08/2024 10:53 AM EDT 11/08/2024 10:53 AM EDT us Radha CLEMENT LAB BLOOD ORDERABLES Final Res ult [facility] [address] [place] [address], [place] [phone] * Treponema pallidum antibody with reflex to RPR and particle agglutination (11/08/2024 10:53 AM EDT) T. Pallidum Antibodies Negative Negative LAB CHEMISTRY METHOD 11/08/2024 7:49 PM EDT [facility] Blood Venous blood specimen / Unknown Venipuncture / Unknown 11/08/2024 10:53 AM EDT 11/08/2024 10:53 AM EDT [facility] Final Res ult [facility] [address] [place] [address], * Hepatitis B surface antigen with reflex to confirmation (11/08/2024 10:53 AM EDT) Hepatitis B Surface Ag Negative Negative LAB CHEMISTRY METHOD 11/08/2024 6:12 PM EDT [facility] Blood Venous blood specimen / Unknown Venipuncture / Unknown 11/08/2024 10:53 AM EDT 11/08/2024 10:53 AM EDT Narrative [facility] - 11/08/2024 6:12 PM EDT Over the counter supplements containing high doses of biotin may interfere with this assay. ??If interference is suspected, patients shoud be retested after refraining from biotin supplements for 72 hours. [facility] LAB BLOOD ORDERABLES Final Res ult [facility] [address] [place] [address], [place] [phone] * HIV 1,2 antibody, p24 antigen with reflex to differentiation (11/08/2024 10:53 AM EDT) HIV Combo AB/AG Negative Negative LAB CHEMISTRY METHOD 11/08/2024 6:41 PM EDT [facility] Blood Venous blood specimen / Unknown Venipuncture / Unknown 11/08/2024 10:53 AM EDT 11/08/2024 10:53 AM EDT N[facility]ative [facility] - 11/08/2024 6:41 PM EDT This assay is a 4th generation assay allowing for earlier detection of HIV infection by detecting the presence of the HIV-1 p24 antigen as well as the traditional antibodies to HIV type 1 (including group O) and type 2. ??Use of a 4th generation assay is the current CDC recommendation for HIV screening. Radha CLEMENT LAB BLOOD ORDERABLES Final Res ult [facility] [address] [place] [address], [place] [phone] documented in this encounter Visit Diagnoses Diagnosis Screen for STD (sexually transmitted disease)- Primary Screening examination for venereal disease Vaginal discharge Leukorrhea, not specified as infective Hypertension, unspecified type Intrauterine device surveillance documented in this encounter Additional Health Concerns Assessment Noted Time PHQ-9 Depression Total Score: 0 06/07/20 24 1:08 PM EST documented as of this encounter Care Teams Public Relations Officer Relationship Specialty Start Date End Date Kassandra Matt MD [address] [place] [address] , [address] [facility] Physician Associ D/B/A: [facility] [place], [place] PCP - General Internal Medicine 10/17/18 documented as of this encounter
== END 2024-11-15 16:49 | disposition home or self-care (01) ==
LOC: HO.HMCH 15:54
PROVIDERS: PCP Physician Assistant; Visit Provider Physician Assistant
DX: Z00.00 Encounter for general adult medical examination without abnormal findings (principal); E66.812 Obesity, class 2; Z68.35 Body mass index [BMI] 35.0-35.9, adult; Z13.1 Encounter for screening for diabetes mellitus

== ENCOUNTER → 2024-11-15 15:53 | Outpatient (BNVA) | payer MEDICAID, SELFPAY | PROVIDERS: PCP Physician Assistant; Visit Provider Physician Assistant | DX: Z00.00 Encounter for general adult medical examination without abnormal findings (principal); E66.812 Obesity, class 2; L50.8 Other urticaria; Z68.39 Body mass index [BMI] 39.0-39.9, adult | CPT/HCPCS: 96127; 99395 ==

== ENCOUNTER 2024-11-16 09:08 | Outpatient (REF) | payer MEDICAID, SELFPAY ==
--- OUTSIDE RECORDS SUMMARY | 2024-11-16 09:21 | XMS_ITS | Encounter Summary ---
Author Organization [facility] Address [address] [place] [address] Care Team Providers Care Glycerin Supervisor Name Role Phone Kassandra Matt MD Primary Care Provider [phone] Reason for Visit * Reason Onset Date Comments Advice Only 11/13/2024 Encounter Details Date Type Department Care Team ([facility] st Contact Info) Description 11/13/2024 Telephone Obstetrics and Gynecology - [place] [address] [place] [phone] Radha Rojas CNM [address] [place] [address] Advice Only Social History Tobacco Use Types [...] has the patient had this problem? Pt???s LOAN BROKER provider: Radha Rojas CNM Last menstrual period (LMP) or EDC (due date): na documented in this encounter Plan of Treatment Upcoming Encounters Date Type Department Care Team (Late st Contact Info) Description 02/22/2025 9:20 AM EDT Office Visit Obstetrics and Gynecology - [place] [address] [place] [address] Radha Rojas, IDANIA [address] [place] [address] documented as of this encounter Visit Diagnoses Not on filedocumented in this encounter Additional Health Concerns Assessment Noted Time PHQ-9 Depression Total Score: 0 06/07/20 24 1:08 PM EST documented as of this encounter Care Teams Glycerin Supervisor Relationship Specialty Start Date End Date Kassandra Matt MD 2 [facility] , [address] [facility] Physician Associ D/B/A: [facility] VICTORINO Telles PCP - General Internal Medicine 10/17/18 documented as of this encounter
--- OUTSIDE RECORDS SUMMARY | 2024-11-16 09:21 | XMS_ITS | Clinical Summary ---
Author Organization Patient Business [facility] Address [address] [place] [address] Care Team Providers Care Account Developer Name Role Phone Kassandra Matt MD Primary Care Provider Allergies No known active allergies Medications metroNIDAZOLE (FLAGYL) 500 mg tablet Take 1 tablet (500 mg total) by mouth 2 (two) times a day for 7 days. Do not use mouth wash or consume alcohol until 48 hours after last dose 14 tablet 11/15/2024 Active Active Problems Problem Noted Date Diagnosed Date Bacterial vaginosis 06/09/2024 Assessment & Plan (06/09/2024 9:49 PM EST): Will treat with FLagyl Vaginal discharge 06/09/2024 Encounters Date Type Department Care Team Description 11/13/2024 Telephone Obstetrics and Gynecology - [address] [phone] Radha Rojas CNM Advice Only 11/08/2024 10:40 AM EDT Lab Draw Station - [address] Screen for STD (sexually transmitted disease) 11/08/2024 10:00 AM EDT Office Visit Obstetrics and Gynecology - [address] [phone] Radha Rojas CNM Screen for STD (sexually transmitted disease) (Primary Dx); Vaginal discharge; Hypertension, unspecified type; Intrauterine device surveillance 10/10/2024 Telephone Obstetrics and Gynecology - [address] [phone] Gardenia Loomis CNM Results from Last 3 Months Surgical History Surgery Date Site/Laterality Comments COLPOSCOPY 2008 PROCEDURE: [place] COLPOSCOPY ENTIRE VAGINA W/VAGINA/CERVIX BX BELT ABDOMINOPLASTY [...] EDT Office Visit Obstetrics and Gynecology - [place] [address] [place] [address] Radha Rojas, [facility] [address] [place] [address] Health Maintenance Due Date Last Done Comments [...] vaginalis Negative Negative 11/14/2024 8:25 PM EDT [facility] Swab Vaginal structure / Unknown Non-blood Collection / Unknown 11/14/2024 10:29 AM EDT 11/14/2024 10:29 AM EDT us Radha Rojas CNM LAB MICROBIOLOGY - GENERAL ORD ERABLES Final Result [facility] [address] [place] [address], [place] [phone] * Chlamydia trachomatis and Neisseria gonorrhoeae molecular study (11/14/2024 10:29 AM EDT) Neisseria gonorrhoeae PCR Negative Negative LAB MOLECULAR DIAGNOSTICS METHOD 11/15/2024 8:39 AM EDT [facility] Chlamydia trachomatis PCR Negative Negative LAB MOLECULAR DIAGNOSTICS METHOD 11/15/2024 8:39 AM EDT [facility] Swab Vaginal structure / Unknown Non-blood Collection / Unknown 11/14/2024 10:29 AM EDT 11/14/2024 10:29 AM EDT us Radha CLEMENT LAB MICROBIOLOGY - GENERAL ORD ERABLES Final Result Performing Organization Address City/[facility]/ZIP Co de Phone Number [facility] [address] [place] [address], * (ABNORMAL) Wet prep, genital (11/14/2024 10:29 AM EDT) Pathologist [facility] Clue Cells, Wet Prep Positive(A) Negative 11/14/2024 8:19 PM EDT [facility] Yeast, Wet Prep Negative Negative 11/14/2024 8:19 PM EDT [facility] Trichomonas, Wet Prep Indeterminate Negative 11/14/2024 8:19 PM EDT [facility] Comment:Refer to Trichomonas antigen. Swab Vaginal structure / Unknown Non-blood Collection / Unknown 11/14/2024 10:29 AM EDT 11/14/2024 10:29 AM EDT us Radha CLEMENT LAB MICROBIOLOGY - GENERAL ORD ERABLES Final Result [facility] [address] [place] [address], [place] [phone] * Hepatitis C antibody (11/08/2024 10:53 AM EDT) Hepatitis C Antibody Negative Negative LAB CHEMISTRY METHOD 11/08/2024 6:41 PM EDT [facility] Blood Venous blood specimen / Unknown Venipuncture / Unknown 11/08/2024 10:53 AM EDT 11/08/2024 10:53 AM EDT us Radha Rojas [facility] BLOOD ORDERABLES Final Res ult Performing Organization Address City/[facility]/ZIP Co de Phone Number [facility] [address] [place] [address], [place] [phone] * HIV 1,2 antibody, p24 antigen with reflex to differentiation (11/08/2024 10:53 AM EDT) HIV Combo AB/AG Negative Negative LAB CHEMISTRY METHOD 11/08/2024 6:41 PM EDT [facility] Blood Venous blood specimen / Unknown Venipuncture / Unknown 11/08/2024 10:53 AM EDT 11/08/2024 10:53 AM EDT Narrative [facility] - 11/08/2024 6:41 PM [...] recommendation for HIV screening. us Radha Rojas [facility] BLOOD ORDERABLES Final Res ult [facility] [address] [place] [address], [place] [phone] * Hepatitis B surface antigen with reflex to confirmation (11/08/2024 10:53 AM EDT) Hepatitis B Surface Ag Negative Negative LAB CHEMISTRY METHOD 11/08/2024 6:12 PM EDT [facility] Blood Venous blood specimen / Unknown Venipuncture / Unknown 11/08/2024 10:53 AM EDT 11/08/2024 10:53 AM EDT Narrative [facility] - 11/08/2024 6:12 PM EDT Over the counter supplements containing high doses of biotin may interfere with this assay. ??If interference is suspected, patients shoud be retested after refraining from biotin supplements for 72 hours. Radha Rojas [facility] BLOOD ORDERABLES Final Res ult Performing Organization Address City/[facility]/ZIP Co de Phone Number [facility] [address] [place] [address], [place] [phone] * Treponema pallidum antibody with reflex to RPR and particle agglutination (11/08/2024 10:53 AM EDT) T. Pallidum Antibodies Negative Negative LAB CHEMISTRY METHOD 11/08/2024 7:49 PM EDT [facility] Blood Venous blood specimen / Unknown Venipuncture / Unknown 11/08/2024 10:53 AM EDT 11/08/2024 10:53 AM EDT Radha Carreon [facility] LAB BLOOD ORDERABLES Final Res ult Performing Organization Address [facility]/ZIP Co de Phone Number [facility] [address] [place] [address], [place] [phone] * Pap smear (11/23/2023) 11/23/2023 Narrative [facility]ISTOR[facility] TESTING LAB RESULTING AGENCY - 2023 4:25 PM EDT [id number] THINPREP PAP, IMAGED: ATYPICAL SQUAMOUS CELLS OF [...] DIAGNOSIS. PAP HX NEGATIVE, IUD, [Z01.419] Radha CLEMENT LAB CYTOLOGY ORDERABLES Final Result [facility]ISTOR[facility] TESTING LAB RESULTING AGENCY from Last 3 Months or Most Recently Relevant to Health Maintenance Insurance MEDICAID - [place] Care Teams Account Developer Relationship Specialty Start Date End Date Kassandra Matt MD 2 [facility] , [address] [facility] Physician Associ D/B/A: [facility] VICTORINO Telles PCP - General Internal Medicine 10/17/18
--- OUTSIDE RECORDS SUMMARY | 2024-11-16 09:21 | XMS_ITS | Encounter Summary ---
Author Organization [facility] Address [address] [place] [address] Care Team Providers Care Spiral Runner Name Role Phone Kassandra Matt MD Primary Care Provider [phone] Reason for Referral * Consultation (Urgent) - Closed Specialty Diagnoses / Procedures Referred By Guicho hull Referred To Contact Internal Medicine Diagnoses Hypertension, unspecified type Radha Rojas CNM [address] [place], [place] Phone: tel: fax: Referral ID Status Reason Start Date Expiration Date V isits Requested Visits Authorized [id number] Closed Specialty Services Required 11/08/2024 11/08/2025 1 1 Reason for Visit * Reason Comments STD Testing Encounter Details Date Type Department Care Team ([facility] Contact Info) Description 11/08/2024 10:00 AM EDT Office Visit Obstetrics and Gynecology - [address] [id number] Radha Rojas CNM [address] [place] [address] Screen for STD (sexually transmitted disease) (Primary [...] discomfort : No dysuria, frequency or incontinence 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): External genitalia normal, normal cervix without [...] EDT Office Visit Obstetrics and Gynecology - [address] [phone] Radha Rojas CNM [address] [place] [id number] Scheduled Referrals Name Type Priority Associated Diagnoses [...] Final Result [facility] [address] [place] [address], * (ABNORMAL) Wet prep, genital (11/14/2024 10:29 [...] Final Result [facility] [address] [place] [address], [place] [phone] * Chlamydia trachomatis and Neisseria gonorrhoeae molecular study (11/14/2024 10:29 AM EDT) Pathologist [facility] Neisseria gonorrhoeae PCR Negative Negative LAB MOLECULAR [...] ORD ERABLES Final Result Performing Organization Address City/[facility]/ZIP Co de Phone Number [facility] [address] [place] [address], [place] [phone] * Hepatitis C antibody (11/08/2024 10:53 AM EDT) Pathologist [facility] Hepatitis C Antibody Negative Negative LAB CHEMISTRY METHOD 11/08/2024 6:41 PM EDT [facility] Blood Venous blood specimen / Unknown Venipuncture / Unknown 11/08/2024 10:53 AM EDT 11/08/2024 10:53 AM EDT us Radha [facility] LAB BLOOD ORDERABLES Final Res ult [facility] [address] [place] [address], [place] [phone] * Treponema pallidum antibody with reflex to RPR and particle agglutination (11/08/2024 10:53 AM EDT) T. Pallidum Antibodies Negative Negative LAB CHEMISTRY METHOD 11/08/2024 7:49 PM EDT [facility] Blood Venous blood specimen / Unknown Venipuncture / Unknown 11/08/2024 10:53 AM EDT 11/08/2024 10:53 AM EDT [facility] Final Res ult [facility] [address] [place] [address], * Hepatitis B surface antigen with reflex [...] refraining from biotin supplements for [address] [facility] LAB BLOOD ORDERABLES Final Res ult [facility] [address] [place] [address], [place] [phone] * HIV 1,2 antibody, p24 antigen with reflex to differentiation (11/08/2024 10:53 AM EDT) HIV Combo AB/AG Negative Negative LAB CHEMISTRY METHOD 11/08/2024 6:41 PM EDT [facility] Blood Venous blood specimen / Unknown Venipuncture / Unknown 11/08/2024 10:53 AM EDT 11/08/2024 10:53 AM EDT [facility]ative [facility] - 11/08/2024 6:41 PM EDT [...] [facility] LAB BLOOD ORDERABLES Final Res ult [facility] [address] [place] [address], [place] [phone] documented in this encounter Visit Diagnoses Diagnosis Screen for STD (sexually transmitted disease)- Primary Screening examination for venereal disease Vaginal discharge Leukorrhea, not specified as infective Hypertension, unspecified type Intrauterine device surveillance documented in this encounter Additional Health Concerns Assessment Noted Time PHQ-9 Depression Total Score: 0 06/07/20 24 1:08 PM EST documented as of this encounter Care Teams Spiral Runner Relationship Specialty Start Date End Date Kassandra Matt MD [address] [place] [address] , [address] [facility] [place], [place] PCP - General Internal Medicine 10/17/18 documented as of this encounter
[2024-11-16 09:40] LABS: Hematocrit 41.6 % (37.0-47.0); Hemoglobin 13.9 g/dl (12.0-16.0); Mean Corpuscular HGB Conc 33.4 g/dl (31.0-35.0); Mean Corpuscular Hemoglobin 30.6 pg (27.0-33.0); Mean Corpuscular Volume 91.6 fL (80.0-98.0); Platelet Count 325 X10*3/uL (160-400); Red Blood Count 4.54 X10*6/uL (4.20-5.50); Red Cell Distribution Width 12.7 % (11.0-16.0); White Blood Count 6.3 X10*3/uL (4.8-10.8)
[2024-11-16 10:22] LABS: Alanine Aminotransferase 41 U/L (0-31); Albumin Level 4.4 g/dL (3.5-5.0); Alkaline Phosphatase 53 U/L (39-117); Anion Gap 9 (12-20); Aspartate Amino Transferase 27 U/L (5-31); Bilirubin Total 0.6 mg/dL (0.0-1.0); Blood Urea Nitrogen 10 mg/dL (9-16); Calcium 9.3 mg/dL (8.4-10.2); Carbon Dioxide 27 mmol/L (22-29); Chloride 107 mmol/L (96-108); Estimated Glomerular Filt Rate > 60; Glucose Fasting 89 mg/dL (60-99); Potassium 4.1 mmol/L (3.3-5.1); Sodium 139 mmol/L (135-145); Total Protein 7.7 g/dL (6.5-8.0)
[2024-11-16 10:41] LABS: TSH reflex Free T4 0.75 uIU/mL (0.32-4.0)
== END 2024-11-16 09:09 | disposition home or self-care (01) ==
LOC: HO.LAB 09:08
PROVIDERS: PCP Physician Assistant; Visit Provider Physician Assistant
DX: E66.812 Obesity, class 2 (principal); Z13.1 Encounter for screening for diabetes mellitus
CPT/HCPCS: 36415; 80053; 84443; 85027